=== PATIENT | female | born 1930 | race Caucasian/White ===

== ENCOUNTER 2017-06-03 09:02 | Inpatient (IN) | payer MEDICARE ==
[~2017-06-03] VITALS: Ht 157.5 cm; Wt 57.2 kg
[~2017-06-03 09:02] MED LIST: AMLO-104 PO; AMLO2.5T74 PO; ASPI-1471 PO; BIOT800T4 PO; CALC-941 PO; CALC1TAB32 PO; CHOL100059 PO; CLON-327 PO; CLON1 PO; DOC100 PO; FURO-45 PO; HYDR-2966 PO; HYDR25SU51 RC; IBUP-1687 PO; LIDO10VI16 IART; LISI-362 PO; LISI20TA29 PO; LISI5TAB25 PO; LOR5/325 PO; METO25TA23 PO; METO25TA91 PO; METO50TA19 PO; MIRT7.5T2 PO; MULT-27 PO; ONDA-2 PO; OXYC1TAB54 PO; OXYGENHOME INH; PER PO; POLY17PO25 PO; PRED-1 PO; RANI-318 PO; SERT25TA90 PO; SPIR25TA78 PO; SULF-198 PO; TRI40I IART; VITA-200 PO
--- NOTE | 2017-06-03 09:04 | ER Report ---
History and Physical Time Seen By MD: 09:04 HPI/ROS CHIEF COMPLAINT: Facial droop, weakness, possible stroke HISTORY OF PRESENT ILLNESS: Patient is an 86-year-old female who presents to the emergency department with complaint of possible stroke symptoms. Patient states that she's been feeling dizzy noted bilateral lower extremity weakness she also reports a new right-sided facial droop that began yesterday, Monday, June 02. Patient has no prior history of stroke. Brief bedside exam reveals a right-sided facial droop that is moderate. She has no pronator drift. No apparent dysarthria and is able to lift both legs off of the exam chair. We will obtain an Accu-Chek at this time send the patient for stat CT of the head. More detailed history to follow when returning from CAT scan. Patient is an 86- year-old female who presents to the emergency department with greater than 12 hours worth of right-sided facial droop, balance disturbance and bilateral lower extremely weakness. She is unsure of the exact set of the onset but states that this all occurred beginning yesterday. became concerned this morning when the patient had some difficulty finding words and some slurred speech which is what prompted the visit to the emergency department. Blood sugar on arrival was 109 mg/dL. Patient denies any chest pain or shortness of breath she denies any abdominal pain she denies nausea vomiting or diarrhea. REVIEW OF SYSTEMS: Constitutional: No fever, no chills. Eyes: No discharge. ENT: No sore throat. Right-sided facial droop Cardiovascular: No chest pain, no palpitations. Respiratory: No cough, no shortness of breath. Gastrointestinal: No abdominal pain, no vomiting. Genitourinary: No hematuria. Musculoskeletal: Bilateral lower extremity weakness Skin: No rashes. Neurological: No headache. Allergies: Coded Allergies: Penicillins (Verified Allergy, Unknown, UNKNOWN, 06/03/17) Home Meds Active Scripts Ranitidine Hcl (RANITIDINE HCL) 150 Mg Tablet, 150 MG PO QHS for 90 Days, #90 TAB 3 Refills Prov:DELANEY BLAKELY MD 04/20/17 Furosemide (FUROSEMIDE) 20 Mg Tablet, 1 TAB PO QAM for 90 Days, #90 TAB 0 Refills Prov:DELANEY BLAKELY MD 04/20/17 Prednisone 10 Mg Tab (PREDNISONE 10 MG TAB) 10 Mg Tablet, 1 TAB PO QDAY for 90 Days, #90 TAB 1 Refill take 1.5 tablets for three days and then take one tablet every morning Prov:DELANEY BLAKELY MD 04/07/17 Lisinopril (LISINOPRIL) 10 Mg Tablet, 10 MG PO DAILY, #180 TAB 3 Refills Prov:DELANEY BLAKELY MD 04/07/17 Reported Medications Carboxymethylcellulose Sodium (RETAINE CMC) 1 Each Droperette, 1 EACH OP 06/03/17 Aspirin (ASPIR 81) 81 Mg Tablet.dr, 81 MG PO QDAY, TAB 04/07/17 Oxygen (OXYGEN) Inha, 2 L INH HS, L 04/07/17 Polyethylene Glycol 3350 (MIRALAX) 17 Gm Powd.pack, 17 GM PO PRN, PKT 04/07/17 Calcium Carb & Cit/Vitamin D3 (CALCIUM + D3 ER TABLET) Unknown Strength Tablet.er, TAB PO DAILY 400mg/500IU 04/07/17 Vitamin E Acetate (VITAMIN E) 400 Unit Capsule, 1 CAP PO DAILY, CAPSULE 04/07/17 Past Medical/Surgical History Past medical history for hypertension hypercholesterolemia Hx Smoking: No Smoking Status: Former Smoker Exposure to Second Hand Smoke?: No Hx Substance Use Disorder: No Hx Alcohol Use: No Constitutional Vital Sign - Last 24 Hours 06/03/17 06/03/17 06/03/17 06/03/17 09:02 09:15 09:17 09:20 Temp 98.7 Pulse ??? 73 75 Resp 17 14 B/P (MAP) 193/92 (125) 193/92 Pulse Ox 91 91 O2 Delivery Room Air 06/03/17 06/03/17 06/03/17 06/03/17 09:30 09:32 09:47 10:00 Pulse 74 ??? B/P (MAP) 168/89 (115) O2 Flow Rate 2.0 06/03/17 06/03/17 06/03/17 06/03/17 10:00 10:02 10:15 10:17 Pulse 74 78 Resp 22 B/P (MAP) 169/95 (119) 159/87 (111) Pulse Ox 96 06/03/17 06/03/17 06/03/17 06/03/17 10:30 10:32 10:37 10:45 Pulse 74 ??? Resp 16 B/P (MAP) 156/91 (112) 164/89 (114) Pulse Ox 95 06/03/17 06/03/17 06/03/17 06/03/17 10:52 11:00 11:07 11:15 Pulse 74 76 Resp 17 17 B/P (MAP) 161/91 (114) 173/93 (119) Pulse Ox 96 95 06/03/17 06/03/17 06/03/17 06/03/17 11:22 11:30 12:15 12:22 Pulse 78 75 Resp 17 25 B/P (MAP) 166/89 (114) 160/90 (113) Pulse Ox 95 93 06/03/17 06/03/17 06/03/17 06/03/17 12:38 12:38 12:40 12:40 Pulse 79 73 Resp 14 Pulse Ox 97 99 O2 Delivery Nasal Cannula Nasal Cannula O2 Flow Rate 2.0 2.0 Physical Exam General/Constitutional: Patient is awake, alert, nontoxic and in no acute respiratory distress. Head: Normocephalic and atraumatic. Eyes: Conjunctival clear, Pupils are equal and reactive to light. Extraocular muscles are intact and symmetrical. Sclera are clear and anicteric. Ears:External canals are clear. Tympanic membranes are clear with normal landmarks and light reflex. Nares: No rhinorrhea or bleeding. Turbinates are pink and moist. Oropharyngeal: Mucous membranes are moist. There is no pharyngeal erythema or exudate. There are no palatal petechiae. Uvula is midline and symmetrical. Neck: Supple, no adenopathy. Cardiovascular: Heart is regular rate and rhythm without audible murmurs, rubs or gallops. Pulmonary: Lungs are clear to auscultation bilaterally. There are no wheezes, rales, or rhonchi. Chest rise is symmetrical Abdomen: Soft, nontender, no guarding or peritoneal signs. Extremities: No gross deformities, No peripheral cyanosis. Able to move all 4 extremities. Neuro: Alert and oriented X3, Cranial nerves 2 thru 12 are intact and symmetrical. Patient has normal gait. Skin: No rashes, skin is warm dry and well perfused. Medical Decision Making Data Points Result Diagram: 06/03/17 0918 06/03/17 0918 Laboratory Hematology Test 06/03/17 09:18 Red Blood Count 4.70 M/uL (4.17-5.56) Mean Corpuscular Volume 86.2 fL (80.0-96.0) Mean Corpuscular Hemoglobin 29.2 pg (26.0-33.0) Mean Corpuscular Hemoglobin Concent 33.9 g/dL (32.0-36.0) Red Cell Distribution Width 14.9 % (11.5-14.5) Mean Platelet Volume 7.9 fL (7.2-11.1) Neutrophils (%) (Auto) 76.1 % (39.4-72.5) Lymphocytes (%) (Auto) 12.7 % (17.6-49.6) Monocytes (%) (Auto) 8.4 % (4.1-12.4) Eosinophils (%) (Auto) 2.1 % (0.4-6.7) Basophils (%) (Auto) 0.7 % (0.3-1.4) Nucleated RBC Relative Count (auto) 0.0 /100WBC Neutrophils # (Auto) 12.1 K/uL (2.0-7.4) Lymphocytes # (Auto) 2.0 K/uL (1.3-3.6) Monocytes # (Auto) 1.3 K/uL (0.3-1.0) Eosinophils # (Auto) 0.3 K/uL (0.0-0.5) Basophils # (Auto) 0.1 K/uL (0.0-0.1) Nucleated RBC Absolute Count (auto) 0.00 K/uL Prothrombin Time 12.8 seconds (12.0-14.4) Prothromb Time International Ratio 0.97 Activated Partial Thromboplast Time 25 seconds (23-35) Sodium Level 137 mmol/L (137-145) Potassium Level 3.8 mmol/L (3.5-5.0) Chloride Level 99 mmol/L (98-107) Carbon Dioxide Level 28 mmol/L (22-31) Blood Urea Nitrogen 16 mg/dl (7-18) Creatinine 0.70 mg/dl (0.52-1.04) Glomerular Filtration Rate Calc > 60.0 Random Glucose 92 mg/dl (75-110) Calcium Level 9.8 mg/dl (8.4-10.2) Total Bilirubin 0.8 mg/dl (0.2-1.3) Aspartate Amino Transf (AST/SGOT) 53 U/L (0-35) Alanine Aminotransferase (ALT/SGPT) 34 U/L (0-56) Alkaline Phosphatase 70 U/L (0-126) Troponin I < 0.012 ng/ml Total Protein 7.8 gm/dl (6.3-8.2) Albumin 4.1 g/dl (3.5-5.0) Chemistry Test 06/03/17 09:18 White Blood Count 15.9 k/uL (4.5-11.0) Red Blood Count 4.70 M/uL (4.17-5.56) Hemoglobin 13.7 g/dL (12.0-16.0) Hematocrit 40.6 % (34.0-47.0) Mean Corpuscular Volume 86.2 fL (80.0-96.0) Mean Corpuscular Hemoglobin 29.2 pg (26.0-33.0) Mean Corpuscular Hemoglobin Concent 33.9 g/dL (32.0-36.0) Red Cell Distribution Width 14.9 % (11.5-14.5) Platelet Count 327 K/uL (150-450) Mean Platelet Volume 7.9 fL (7.2-11.1) Neutrophils (%) (Auto) 76.1 % (39.4-72.5) Lymphocytes (%) (Auto) 12.7 % (17.6-49.6) Monocytes (%) (Auto) 8.4 % (4.1-12.4) Eosinophils (%) (Auto) 2.1 % (0.4-6.7) Basophils (%) (Auto) 0.7 % (0.3-1.4) Nucleated RBC Relative Count (auto) 0.0 /100WBC Neutrophils # (Auto) 12.1 K/uL (2.0-7.4) Lymphocytes # (Auto) 2.0 K/uL (1.3-3.6) Monocytes # (Auto) 1.3 K/uL (0.3-1.0) Eosinophils # (Auto) 0.3 K/uL (0.0-0.5) Basophils # (Auto) 0.1 K/uL (0.0-0.1) Nucleated RBC Absolute Count (auto) 0.00 K/uL Prothrombin Time 12.8 seconds (12.0-14.4) Prothromb Time International Ratio 0.97 Activated Partial Thromboplast Time 25 seconds (23-35) Glomerular Filtration Rate Calc > 60.0 Calcium Level 9.8 mg/dl (8.4-10.2) Total Bilirubin 0.8 mg/dl (0.2-1.3) Aspartate Amino Transf (AST/SGOT) 53 U/L (0-35) Alanine Aminotransferase (ALT/SGPT) 34 U/L (0-56) Alkaline Phosphatase 70 U/L (0-126) Troponin I < 0.012 ng/ml Total Protein 7.8 gm/dl (6.3-8.2) Albumin 4.1 g/dl (3.5-5.0) Coagulation Test 06/03/17 09:18 Prothrombin Time 12.8 seconds Prothromb Time International Ratio 0.97 Activated Partial Thromboplast Time 25 seconds EKG/Imaging Imaging FACILITY: [facility] [place] PATIENT NAME: Sharon Shaver : 1930 MR: [id number] V: [id number] EXAM DATE: ORDERING PHYSICIAN: KELVIN LINK TECHNOLOGIST: Location: [facility] [place] Patient: Sharon Shaver : 1930 Visit/Account:[id number] Date of Sevice: 06/03/2017 CT Head without contrast Indication: Possible stroke. Comparison: A CT brain report dated 07/03/2015 is reviewed. Images currently unavailable on the PACS system. Technique: Axial CT images were obtained through the brain from the skull base to the vertex without administration of IV contrast. Reformatted coronal and sagittal images were also obtained. One of the following dose optimization techniques was utilized in the performance of this exam: Automated exposure control; adjustment of the mA and/ or kV according to the patient's size; or use of an iterative reconstruction technique. Specific details can be referenced in the facility's radiology CT exam operational policy. Findings: No evidence of mass, mass effect, or midline shift. No acute intracranial hemorrhage or acute territorial infarction. Extensive areas of low-attenuation seen within the periventricular white matter. This is symmetric from right to left and statistically is due to chronic small vessel ischemic changes. This was described on the prior exam. There is encephalomalacia from an old infarct involving the left basal ganglia. This was also previously described. Ventricles are normal and symmetric. The visualized paranasal sinuses and mastoid air cells are clear. IMPRESSION: 1. No acute intracranial abnormality. 2. Old left basal ganglia infarct. 3. Extensive periventricular white matter changes likely related to chronic small vessel ischemia. Report Dictated By: Andrew Simmons at 06/03/2017 10:11 AM Report E-Signed By: Andrew Simmons at 06/03/2017 10:19 AM WSN:[id number] FACILITY: [facility] [place] PATIENT NAME: Sharon Shaver : 1930 MR: [id number] V: [id number] EXAM DATE: [id number] ORDERING PHYSICIAN: KELVIN LINK TECHNOLOGIST: Location: [facility] [place] Patient: Sharon Shaver : 1930 Visit/Account:[id number] Date of Sevice: 06/03/2017 Exam type: CHEST SINGLE AP History: Stroke Comparison: None. Findings: Lungs are hyperinflated. There is no focal consolidation, pleural effusion or pneumothorax. Heart size is prominent. Pulmonary arteries are enlarged. The osseous structures are unremarkable. IMPRESSION: 1. No acute cardiopulmonary disease. 2. Pulmonary hyperinflation. 3. Cardiomegaly with enlarged pulmonary arteries Report Dictated By: Toni Brown MD at 06/03/2017 10:06 AM Report E-Signed By: Toni Brown MD at 06/03/2017 10:13 AM WSN:[id number] FACILITY: [facility] [place] PATIENT NAME: Sharon Shaver : 1930 MR: [id number] V: [id number] EXAM DATE: [id number] ORDERING PHYSICIAN: KELVIN LINK TECHNOLOGIST: Location: [facility] [place] Patient: Sharon Shaver : 1930 Visit/Account:[id number] Date of Sevice: 06/03/2017 Examination: MRI brain without contrast Comparison: CT head same day. History: Possible stroke. Procedure: Multiplanar noncontrast MRI of the brain with T1, T2, FLAIR, DWI/ADC , and T2* GRE sequences. FINDINGS: Brain volume: Mild global volume loss. Sagittal midline structures and craniocervical junction: Negative. Midline shift: None. Ventricles: Negative. Brain parenchyma: Diffusion weighted imaging: Along the posterior margin of the left basal ganglia lacunar infarct is an 11 mm focus of abnormal diffusion restriction with accompanying decreased signal on ADC. Gradient sequence: Negative. T2 and FLAIR images: Extensive regions of subcortical and deep white matter increased signal intensity is nonspecific but favored to be secondary to chronic microvascular ischemic disease. No region of acute parenchymal edema. Extra-axial spaces: Negative. Dural venous sinuses and major arterial flow voids: Negative. Calvarium: Negative. Mastoid air cells and paranasal sinuses: Negative. Surrounding soft tissues and orbits: Negative. IMPRESSION: Left basal ganglia 11 mm focus of acute ischemia. Results were discussed with AKIRA Pederson, at 06/03/2017 12:39 PM. Report Dictated By: Mp Bruno MD at 06/03/2017 12:30 PM Report E-Signed By: Mp Bruno MD at 06/03/2017 12:39 PM WSN:[id number] ED Course/Re-evaluation ED Course NIH Stroke Scale: 3 Level of consciousness: Alert -0 Answers both questions correctly-0 Performs both tasks correctly-0 Best Gaze: Normal-0 Visual: No visual loss-0 Facial Palsy: Partial paralysis-2 Motor Left Arm: No drift for 10 seconds-0 Motor Right Arm: No drift for 10 seconds-0 Motor Left Leg: No drift for 5 seconds-0 Motor Right Leg: No drift for 5 seconds-0 Limb Ataxia: Absent-0 Sensory: Normal, no sensory loss-0 Best Language: Normal, no aphasia-0 Dysarthria: Normal-1 Extinction and Inattention: No abnormality-0 06/03/2017 12:53:42 pm patient does have a new focal finding on a noncontrast MRI of the brain 11 mm area of stroke in the left basal ganglia area. The case was discussed with Dr. Silva neurology at [facility]. His recommendation was the patient would be stable for admission here he would recommend starting the patient on 81 mg aspirin daily and also 75 mg of Plavix daily the patient currently takes a statin but further recommends an echocardiogram and that the patient should be admitted to telemetry and have a carotid Doppler performed. This was explained to the patient who agreed to admission of this time I spoke with our hospitalist Dr. Tapia he has agreed to accept the patient at this time Re-evaluation 06/03/2017 9:10:58 am onset of symptoms is greater than 4.5 hours from presentation. For this reason patient is an absolute contraindication to thrombolytics at this time. Decision to Disposition Date: Jun 03, 2017 Decision to Disposition Time: 12:53 Depart Departure Latest Vital Signs Vital Signs Date Time Temp Pulse Resp B/P (MAP) Pulse Ox O2 Delivery O2 Flow Rate FiO2 06/03/17 12:40 99 Nasal Cannula 2.0 06/03/17 12:40 73 06/03/17 12:38 14 06/03/17 12:15 160/90 (113) 06/03/17 09:20 98.7 Impression: Primary Impression: CVA (cerebral vascular accident) Condition: Condition Unchanged Disposition: Admitted from ER (to Med surg tele; dr Tapia) Referrals: DELANEY BLAKELY MD (PCP) Problem Qualifiers Primary Impression: CVA (cerebral vascular accident) CVA mechanism: unspecified Qualified Codes: I63.9 - Cerebral infarction, unspecified KELVIN LINK MD Jun 03, 2017 09:04
[2017-06-03] MEDS ORDERED: CARB1DRO OP (09:26)
--- NOTE | 2017-06-03 09:54 | EKG ---
FACILITY: [facility] PATIENT NAME: KUN KEARNEY : [id number] MR: [id number] V: [id number] EXAM DATE: ORDERING PHYSICIAN: KELVIN LINK TECHNOLOGIST: Mike Dickerson Reason : Blood Pressure : / mmHG Vent. Rate : 074 BPM Atrial Rate : 074 BPM P-R Int : 146 ms QRS Dur : 084 ms QT Int : 374 ms P-R-T Axes : 062 -41 039 degrees QTc Int : 415 ms Normal sinus rhythm Left axis deviation No ST-T abnormalities When compared with ECG of 03-JUL-2015 03:16, QRS axis shifted left Nonspecific T wave abnormality, improved in Anterior leads QT has shortened Confirmed by LU KRISHNAMURTHY ([id number]) on 06/03/2017 10:25:27 AM Referred By: Confirmed By:LU KRISHNAMURTHY
[2017-06-03 10:03] LABS: PLATELET COUNT, AUTOMATED 327 K/uL (150-450)
[2017-06-03 10:08] LABS: INR 0.97
--- NOTE | 2017-06-03 10:17 | RADIOLOGY IMAGING REPORT ---
FACILITY: [facility] [place] PATIENT NAME: Sharon Shaver : 1930 MR: [id number] V: [id number] EXAM DATE: ORDERING PHYSICIAN: KELVIN LINK TECHNOLOGIST: Location: [facility] [place] Patient: Sharon Shaver : 1930 Visit/Account:[id number] Date of Sevice: 06/03/2017 Exam type: CHEST SINGLE AP History: Stroke Comparison: None. Findings: Lungs are hyperinflated. There is no focal consolidation, pleural effusion or pneumothorax. Heart size is prominent. Pulmonary arteries are enlarged. The osseous structures are unremarkable. IMPRESSION: 1. No acute cardiopulmonary disease. 2. Pulmonary hyperinflation. 3. Cardiomegaly with enlarged pulmonary arteries Report Dictated By: Toni Brown MD at 06/03/2017 10:06 AM Report E-Signed By: Toni Brown MD at 06/03/2017 10:13 AM WSN:[id number]
--- NOTE | 2017-06-03 10:22 | RADIOLOGY IMAGING REPORT ---
FACILITY: [facility] [place] PATIENT NAME: Sharon Shaver : 1930 MR: [id number] V: [id number] EXAM DATE: ORDERING PHYSICIAN: KELVIN LINK TECHNOLOGIST: Location: [facility] Patient: Sharon Shaver : 1930 Visit/Account:[id number] Date of Sevice: 06/03/2017 CT Head without contrast Indication: Possible stroke. Comparison: A CT brain report dated 07/03/2015 is reviewed. Images currently unavailable on the PACS system. Technique: Axial CT images were obtained through the brain from the skull base to the vertex without administration of IV contrast. Reformatted coronal and sagittal images were also obtained. One of the following dose optimization techniques was utilized in the performance of this exam: Autom ated exposure control; adjustment of the mA and/or kV according to the patient's size; or use of an i terative reconstruction technique. Specific details can be referenced in the facility's radiology C T exam operational policy. Findings: No evidence of mass, mass effect, or midline shift. No acute intracranial hemorrhage or acute territorial infarction. Extensive areas of low-attenuation seen within the periventricular white matter. This is symmetric fr om right to left and statistically is due to chronic small vessel ischemic changes. This was describe d on the prior exam. There is encephalomalacia from an old infarct involving the left basal ganglia. This was also previously described. Ventricles are normal and symmetric. The visualized paranasal sinuses and mastoid air cells are clear. IMPRESSION: 1. No acute intracranial abnormality. 2. Old left basal ganglia infarct. 3. Extensive periventricular white matter changes likely related to chronic small vessel ischemia. Report Dictated By: Andrew Simmons at 06/03/2017 10:11 AM Report E-Signed By: Andrew Simmons at 06/03/2017 10:19 AM WSN:[id number]
[2017-06-03] MEDS ORDERED: LORazepam 2 MG/ML VIAL IVP ONE (11:25)
[2017-06-03] MEDS ORDERED: ALBUTEROL 1.25 MG/3ML NEB NEB ONE (12:35)
--- NOTE | 2017-06-03 12:42 | RADIOLOGY IMAGING REPORT ---
FACILITY: [facility] PATIENT NAME: Sharon Shaver : 1930 MR: [id number] V: [id number] EXAM DATE: ORDERING PHYSICIAN: KELVIN LINK TECHNOLOGIST: Location: [facility] Patient: Sharon Shaver : 1930 Visit/Account:[id number] Date of Sevice: 06/03/2017 Examination: MRI brain without contrast Comparison: CT head same day. History: Possible stroke. Procedure: Multiplanar noncontrast MRI of the brain with T1, T2, FLAIR, DWI/ADC, and T2* GRE sequence s. FINDINGS: Brain volume: Mild global volume loss. Sagittal midline structures and craniocervical junction: Negative. Midline shift: None. Ventricles: Negative. Brain parenchyma: Diffusion weighted imaging: Along the posterior margin of the left basal ganglia lacunar infarct is an 11 mm focus of abnormal diffusion restriction with accompanying decreased signal on ADC. Gradient sequence: Negative. T2 and FLAIR images: Extensive regions of subcortical and deep white matter increased signal intens ity is nonspecific but favored to be secondary to chronic microvascular ischemic disease. No region o f acute parenchymal edema. Extra-axial spaces: Negative. Dural venous sinuses and major arterial flow voids: Negative. Calvarium: Negative. Mastoid air cells and paranasal sinuses: Negative. Surrounding soft tissues and orbits: Negative. IMPRESSION: Left basal ganglia 11 mm focus of acute ischemia. Results were discussed with AKIRA Pederson, at 06/03/2017 12:39 PM. Report Dictated By: Mp Bruno MD at 06/03/2017 12:30 PM Report E-Signed By: Mp Bruno MD at 06/03/2017 12:39 PM WSN:[id number]
[2017-06-03 14:05] VITALS: BP 140/80
[2017-06-03] MEDS: CLOPIDOGREL BISULFATE 75MG TAB PO SCH (15:26)
--- NOTE | 2017-06-03 15:47 | History & Physical ---
History of Present Illness History of Present Illness 86yo female with a h/o PMR, HTN, and possible previous CVA who came to the ER for difficulty speaking and facial droop. 4 days ago, the patient saw her PCP who increased the prednisone to 15mg a day for 3 days and then the patient was to resume 10mg a day for her PMR. Yesterday, morning the patient noted right hand weakness and some drooling on the right side of her mouth. This morning her noticed a right sided facial droop and he had difficulty understanding what she was saying. The patient has noticed some word finding problems. She reports tripping yesterday when her feet got caught in cords on the ground. She doesn't report any right LE weakness. She might have had a stroke a couple of years ago based on an MRI in June 2015. She takes a baby ASA daily. She stopped smoking about 25 years ago. History Problems: (1) Polymyalgia rheumatica Status: Acute (2) History of hyperthyroidism Status: Resolved (3) Benign essential hypertension Onset Date: 09/09/2014 Status: Chronic (4) History of bladder surgery Status: Resolved (5) Hx of hysterectomy Status: Resolved (6) Hx of cataract extraction Status: Resolved (7) History of hemorrhoidectomy Status: Resolved (8) Hx of basal cell carcinoma excision Status: Chronic (9) Anxiety Status: Chronic Other Past Medical Hx Lives with her . No alcohol use or tobacco use. Home Meds Active Scripts Ranitidine Hcl (RANITIDINE HCL) 150 Mg Tablet, 150 MG PO QHS for 90 Days, #90 TAB 3 Refills Prov:DELANEY BLAKELY MD 04/20/17 Furosemide (FUROSEMIDE) 20 Mg Tablet, 1 TAB PO QAM for 90 Days, #90 TAB 0 Refills Prov:DELANEY BLAKELY MD 04/20/17 Prednisone 10 Mg Tab (PREDNISONE 10 MG TAB) 10 Mg Tablet, 1 TAB PO QDAY for 90 Days, #90 TAB 1 Refill take 1.5 tablets for three days and then take one tablet every morning Prov:DELANEY BLAKELY MD 04/07/17 Lisinopril (LISINOPRIL) 10 Mg Tablet, 10 MG PO DAILY, #180 TAB 3 Refills Prov:DELANEY BLAKELY MD 04/07/17 Reported Medications Carboxymethylcellulose Sodium (RETAINE CMC) 1 Each Droperette, 1 EACH OP 06/03/17 Aspirin (ASPIR 81) 81 Mg Tablet.dr, 81 MG PO QDAY, TAB 04/07/17 Oxygen (OXYGEN) Inha, 2 L INH HS, L 04/07/17 Polyethylene Glycol 3350 (MIRALAX) 17 Gm Powd.pack, 17 GM PO PRN, PKT 04/07/17 Calcium Carb & Cit/Vitamin D3 (CALCIUM + D3 ER TABLET) Unknown Strength Tablet.er, TAB PO DAILY 400mg/500IU 04/07/17 Vitamin E Acetate (VITAMIN E) 400 Unit Capsule, 1 CAP PO DAILY, CAPSULE 04/07/17 Allergies: Coded Allergies: Penicillins (Verified Allergy, Unknown, UNKNOWN, 06/03/17) Patient History: Connective tissue disease FATHER, , Age:57 FH: CHF (congestive heart failure) MOTHER, , Age:70 No pertinent family history CHILD CHILD CHILD CHILD Hx Smoking: No Smoking Status: Former Smoker Exposure to Second Hand Smoke?: No Caffeine Intake: Coffee Caffeine/Cups Per Day: OCC Hx Alcohol Use: No Hx Substance Use Disorder: No Social Drug Use: Never Review of Systems All Systems Reviewed/Normal: Yes, Except as Noted Exam Vital Signs Vital Signs Date Time Temp Pulse Resp B/P (MAP) Pulse Ox O2 Delivery O2 Flow Rate FiO2 06/03/17 14:05 98.0 72 24 140/80 (100) 96 Nasal Cannula 2.0 General Appearance: Alert, Awake, No Acute Distress Neuro: Other (Obvious facial droop on the right that persists with attempted smile. No other focal CN deficits on exam. Equal laundry washer/elbow flexion and extension/dorsiflexion/plantar flexion. Decreased resistance on the right to downward pressure with hip flexion. Normal sensation to light touch in the extremities. Slower with alternating clap and heel to naranjo on the right vs left.) ENT: Moist Mucous Membranes Cardiovascular: Regular Rate and Rhythm Respiratory: Clear to Auscultation : No CVA Tenderness Extremities: No Edema Medical Decision Making Data Points Result Diagram: 06/03/1791706/03/17917 Item Value Date Time Neutrophils (%) (Auto) 76.1 % H 06/03/17 0918 White Blood Count 15.9 k/uL H 06/03/1718 Erythrocyte Sedimentation Rate 51 mm/HOUR H 04/07/17 1000 Erythrocyte Sedimentation Rate 22 mm/HOUR 05/01/17 1638 Hemoglobin 13.7 g/dL 06/03/17917 Hematocrit 40.6 % 06/03/17917 Prothromb Time International Ratio 0.97 06/03/17917 Troponin I < 0.012 ng/ml 06/03/17917 Total Bilirubin 0.8 mg/dl 06/03/17917 Aspartate Amino Transf (AST/SGOT) 53 U/L H 06/03/17917 Alanine Aminotransferase (ALT/SGPT) 34 U/L 06/03/17917 Alkaline Phosphatase 70 U/L 06/03/17917 EKG / Imaging EKG Interpretation Vent. Rate : 074 BPM Atrial Rate : 074 BPM P-R Int : 146 ms QRS Dur : 084 ms QT Int : 374 ms P-R-T Axes : 062 -41 039 degrees QTc Int : 415 ms Normal sinus rhythm Left axis deviation No ST-T abnormalities When compared with ECG of 03-JUL-2015 03:16, QRS axis shifted left Nonspecific T wave abnormality, improved in Anterior leads QT has shortened Confirmed by LU KRISHNAMURTHY ([id number]) on 06/03/2017 10:25:27 AM Imaging Brain MRI - Brain volume: Mild global volume loss. Sagittal midline structures and craniocervical junction: Negative. Midline shift: None. Ventricles: Negative. Brain parenchyma: Diffusion weighted imaging: Along the posterior margin of the left basal ganglia lacunar infarct is an 11 mm focus of abnormal diffusion restriction with accompanying decreased signal on ADC. Gradient sequence: Negative. T2 and FLAIR images: Extensive regions of subcortical and deep white matter increased signal intensity is nonspecific but favored to be secondary to chronic microvascular ischemic disease. No region of acute parenchymal edema. Extra-axial spaces: Negative. Dural venous sinuses and major arterial flow voids: Negative. Calvarium: Negative. Mastoid air cells and paranasal sinuses: Negative. Surrounding soft tissues and orbits: Negative. IMPRESSION: Left basal ganglia 11 mm focus of acute ischemia. CXR - 1. No acute cardiopulmonary disease. 2. Pulmonary hyperinflation. 3. Cardiomegaly with enlarged pulmonary arteries Head CT - 1. No acute intracranial abnormality. 2. Old left basal ganglia infarct. 3. Extensive periventricular white matter changes likely related to chronic small vessel ischemia. Assessment and Plan Problems: (1) CVA (cerebral vascular accident) Status: Acute Assessment & Plan: She presented with about 24 hours of right UE weakness and an unknown duration of right facial droop and word finding problems. She has evidence of microvascular disease on brain imaging. She is already on ASA. The ER physician spoke with a Neurologist who recommended adding Plavix to the ASA and starting a statin. Will delay starting the statin until a CPK is back. Will ask OT/PT/ST to evaluate the patient. Will get a echo and carotid Dopplers. Will watch on telemetry. (2) Polymyalgia rheumatica Status: Acute Assessment & Plan: Diagnosed in March. Recently, increased from 10mg to 15mg for 3 days. Will continue at 10mg for now. ESR and CPK in the morning. She is not reporting any symptoms currently. (3) Benign essential hypertension Status: Chronic Assessment & Plan: Chronically on Lisinopril and on a tapering dose of Furosemide. Will hold both and likely not restart the Furosemide, since it is planned to be stopped. Will follow BP closely. (4) History of hyperthyroidism Status: Resolved Assessment & Plan: She received radioactive iodine. Will check a TSH. (5) COPD (chronic obstructive pulmonary disease) Status: Chronic Assessment & Plan: On O2 chronically. Lungs clear. Not on any nebs. Copies to: DELANEY BLAKELY MD Venous Thromboembolism Antithrombotics Is Pt On Any Antithrombotics?: No Exam Sepsis Risk: No Definite Risk Problem Qualifiers (1) CVA (cerebral vascular accident): CVA mechanism: unspecified Qualified Codes: I63.9 - Cerebral infarction, unspecified LU KRISHNAMURTHY MD Jun 03, 2017 15:47
[2017-06-03 19:49] VITALS: BP 122/72
[2017-06-03] MEDS: ALBUTEROL 2.5 MG/3 ML NEB NEB PRN (20:05)
[2017-06-03] MEDS: ASPIRIN 81 MG CHEW PO SCH (20:50)
[2017-06-03] MEDS: RANITIDINE HCL 150 MG TAB PO SCH (20:50)
[2017-06-03 23:20] VITALS: BP 99/67
[2017-06-04 02:59] VITALS: BP 135/82
[2017-06-04 06:41] LABS: PLATELET COUNT, AUTOMATED 257 K/uL (150-450)
[2017-06-04 08:59] VITALS: BP 134/78
[2017-06-04] MEDS: POLYETHYLENE GLYCOL 17 GM PKT PO SCH (09:00)
[2017-06-04] MEDS: predniSONE 10 MG TAB PO SCH (09:17)
[2017-06-04] MEDS: ALBUTEROL 2.5 MG/3 ML NEB NEB PRN (10:13)
[2017-06-04 10:44] VITALS: Ht 157.5 cm; Wt 57.2 kg
[2017-06-04 11:29] VITALS: BP 131/78
--- NOTE | 2017-06-04 14:35 | Hospitalist Progress Note ---
Subjective Progress Notes Subjective The patient denies pain. She can not tell if her neurologic status has improved. Physical Exam Vital Signs Date Time Temp Pulse Resp B/P (MAP) Pulse Ox O2 Delivery O2 Flow Rate FiO2 06/04/17 12:36 91 Nasal Cannula 1.0 06/04/17 11:29 97.6 87 16 131/78 (95) Intake and Output 06/05/17 07:00 Intake Total 640 ml Balance 640 ml Intake Oral 640 ml # Voids 2 # Bowel Movements 1 General Appearance: Alert, Awake, No Acute Distress, Afebrile Neuro: Other (R facial droop. R hand piece presser same as left. R leg hip flexion only slightly decreased c/w L. Leg strength otherwise similar to L.) Cardiovascular: Regular Rate and Rhythm Respiratory: Clear to Auscultation GI: Soft and Non-Tender Extremities: Warm, Perfused, Other (No edema.) Integumentary: Skin Intact without Lesion / Mass Psych: Appropriate Mood & Affect Result Diagram: 06/04/1760606/04/17606 Assessment and Plan Problems: (1) CVA (cerebral vascular accident) Status: Acute Assessment & Plan: She presented with about 24 hours of right UE weakness and an unknown duration of right facial droop and word finding problems. She has evidence of microvascular disease on brain imaging. She is already on ASA. The ER physician spoke with a Neurologist who recommended adding Plavix to the ASA and starting a statin. CPK is normal (has PMR). Will start atorvastatin. Will ask OT/PT/ST to evaluate the patient. Echo and carotid Dopplers ordered but apparently there is no staff for these tests today. Will watch on telemetry. (2) Polymyalgia rheumatica Status: Acute Assessment & Plan: Diagnosed in March. Recently, increased from 10mg to 15mg for 3 days. Will continue at 10mg for now. ESR and CPK are WNL. She is not reporting any symptoms currently. (3) Benign essential hypertension Onset Date: 09/09/2014 Status: Chronic Assessment & Plan: Chronically on Lisinopril and on a tapering dose of Furosemide. Will hold both and likely not restart the Furosemide, since it is planned to be stopped. Will follow BP closely. (4) History of hyperthyroidism Status: Resolved Assessment & Plan: She received radioactive iodine. Will check a TSH. (5) COPD (chronic obstructive pulmonary disease) Status: Chronic Assessment & Plan: On O2 chronically. Lungs clear. Not on any nebs. Time Spent on Plan of Care: < 30 min Exam Sepsis Risk: No Definite Risk Problem Qualifiers (1) CVA (cerebral vascular accident): CVA mechanism: unspecified Qualified Codes: I63.9 - Cerebral infarction, unspecified LEANA CAPONE MD Jun 04, 2017 14:35
[2017-06-04] MEDS ORDERED: INFLUENZA VIRUS VAC 0.5 ML SYR IM ONLY ONE (15:05)
[2017-06-04 15:49] VITALS: BP 132/86
[2017-06-04] MEDS: CLOPIDOGREL BISULFATE 75MG TAB PO SCH (15:55)
--- NOTE | 2017-06-04 17:21 | RADIOLOGY IMAGING REPORT ---
FAC[facility]: [facility] PATIENT NAME: Sharon Shaver : 1930 MR: [id number] V: [id number] EXAM DATE: ORDERING PHYSICIAN: LU KRISHNAMURTHY TECHNOLOGIST: Location: [facility] [place] Patient: Sharon Shaver : 1930 Visit/Account:[id number] Date of Sevice: 06/03/2017 Carotid ultrasound Indication: Stroke. Comparison:None available Findings: On the right : Peak systolic velocity of the right common carotid artery is 99 cm/s Peak systolic velocity of the right internal carotid artery is 62 cm/s There is normal antegrade flow of the right vertebral artery. The right ICA/CCA ratio is 0.6 On the left: Peak systolic velocity of the left common carotid artery is 87 cm/s Peak systolic velocity of the left internal carotid artery is 67 cm/s There is normal antegrade flow of the left vertebral artery. The left ICA/CCA ratio is 0.8 Mild calcified plaque identified within the carotid bulbs. Incidental note is made of a solid, isoechoic right thyroid nodule measuring up to 3.2 cm in diameter . IMPRESSION: 1. No hemodynamically significant stenosis of the bilateral common carotid arteries and bilateral int ernal carotid arteries as above. . Mild calcified plaque within the bilateral carotid bulbs without visualized stenosis. 3. Incidental note of a solid isoechoic nodule within the right thyroid lobe. This nodule meets [place] thyroid Association criteria for ultrasound-guided biopsy, if not previously imaged or previously biopsied. Carotid % stenosis: Velocity criteria are extrapolated from diameter data as defined by the Society o f Radiologists in Ultrasound Consensus Conference, Radiology 2003; 229; 340-346 Report Dictated By: Stanley Longoria MD at 06/04/2017 5:12 PM Report E-Signed By: Stanley Longoria MD at 06/04/2017 5:18 PM WSN:[id number]
[2017-06-04 19:27] VITALS: BP 157/93
[2017-06-04] MEDS: RANITIDINE HCL 150 MG TAB PO SCH (21:15)
[2017-06-04] MEDS: ASPIRIN 81 MG CHEW PO SCH (21:15)
[2017-06-04 23:17] VITALS: BP 149/82
[2017-06-05 02:53] VITALS: BP 154/83
[2017-06-05 06:07] LABS: PLATELET COUNT, AUTOMATED 250 K/uL (150-450)
[2017-06-05 07:47] VITALS: BP 162/80
[2017-06-05] MEDS: POLYETHYLENE GLYCOL 17 GM PKT PO SCH (09:00)
[2017-06-05] MEDS: predniSONE 10 MG TAB PO SCH (09:41)
--- NOTE | 2017-06-05 12:45 | Hospitalist Progress Note ---
Subjective Progress Notes Subjective This patient was admitted for an acute stroke. She had no acute events overnight. Patient Complains of: Cardiovascular: No: Chest Pain Respiratory: No: Shortness of Breath Physical Exam Vital Signs Date Time Temp Pulse Resp B/P (MAP) Pulse Ox O2 Delivery O2 Flow Rate FiO2 06/05/17 09:13 58 06/05/17 07:47 97.7 16 162/80 (107) 95 High-Flow Nasal Cannula 2.0 Intake and Output 06/06/17 07:00 Intake Total 240 ml Balance 240 ml Intake Oral 240 ml # Voids 1 Neuro: Other (Right sided facial droop.) Cardiovascular: Regular Rate and Rhythm Respiratory: Clear to Auscultation Extremities: No Edema Integumentary: No Cyanosis Result Diagram: 06/05/1752106/05/17521 Imaging Brain MRI reviewed. Carotid ultrasound reviewed. Assessment and Plan Problems: (1) CVA (cerebral vascular accident) Status: Acute Assessment & Plan: She presented with right upper extremity weakness, right facial droop, and word finding problems. A CT scan showed findings consistent with a left sided infarct and chronic micro ischemic changes. An MRI showed the left sided infarct to be acute. She was already on chronic treatment with aspirin. Plavix has been added based on neurology recommendations. A carotid ultrasound was negative for hemodynamically significant lesions. An echocardiogram and lipid panel are pending. (2) Thyroid nodule Assessment & Plan: This was noted on her carotid ultrasound. A thyroid biopsy was recommended. (3) Polymyalgia rheumatica Status: Acute Assessment & Plan: She was diagnosed with this in March 2017 and has been on prednisone for this. She has not required stress dosing. Her ESR is within normal limits. (4) Benign essential hypertension Onset Date: 09/09/2014 Status: Chronic Assessment & Plan: She had been on chronic treatment with lisinopril and Lasix. Both medications have been held in the setting of acute stroke. (5) COPD (chronic obstructive pulmonary disease) Status: Chronic Assessment & Plan: She is on chronic oxygen therapy. Exam Sepsis Risk: No Definite Risk Problem Qualifiers (1) CVA (cerebral vascular accident): CVA mechanism: unspecified Qualified Codes: I63.9 - Cerebral infarction, unspecified SANIYA EASTMAN DO Jun 05, 2017 12:45
[2017-06-05 13:54] VITALS: BP 110/78
[2017-06-05] MEDS: CLOPIDOGREL BISULFATE 75MG TAB PO SCH (15:43)
[2017-06-05 19:04] VITALS: BP 166/91
[2017-06-05] MEDS: RANITIDINE HCL 150 MG TAB PO SCH (20:09)
[2017-06-05] MEDS: ASPIRIN 81 MG CHEW PO SCH (20:10)
[2017-06-05 23:55] VITALS: BP 152/91
[2017-06-06 05:23] VITALS: BP 176/91
[2017-06-06 07:28] VITALS: BP 166/83
[2017-06-06] MEDS: POLYETHYLENE GLYCOL 17 GM PKT PO SCH (09:00)
[2017-06-06] MEDS: predniSONE 10 MG TAB PO SCH (09:19)
[2017-06-06] MEDS ORDERED: LISINOPRIL 5 MG TAB PO SCH (10:20)
[2017-06-06] MEDS ORDERED: CLOP75TA PO (11:58)
--- NOTE | 2017-06-06 12:06 | Hospitalist Depart ---
Discharge Summary Reason for Hosp/Final Diag: (1) CVA (cerebral vascular accident) Status: Acute Hospital Course & Plan: She presented with right upper extremity weakness, right facial droop, and word finding problems. A CT scan showed findings consistent with a left sided infarct and chronic micro ischemic changes. An MRI showed the left sided infarct to be acute. She was already on chronic treatment with aspirin. Plavix has been added based on neurology recommendations. A carotid ultrasound was negative for hemodynamically significant lesions. Echo showed an EF of 71% and no ASD or VSD. There was borderline . See below. Will defer to the patient's PCP about starting a statin because of the PMR. The patient has worked with OT/PT/ST and will continue work as an outpatient. Apparently, there were no changes in diet or recommendation for MBS by ST. She is safe to go home. (2) Thyroid nodule Status: Chronic Hospital Course & Plan: This was noted on her carotid ultrasound. A thyroid biopsy was recommended. Will defer to the patient's PCP about if and when that would be done. (3) Aortic stenosis Status: Chronic Hospital Course & Plan: See on the echo. It is borderline. She should have follow up with Cardiology or serial echo's. (4) Polymyalgia rheumatica Status: Chronic Hospital Course & Plan: She was diagnosed with this in March 2017 and has been on prednisone for this. She has not required stress dosing. Her ESR is within normal limits. (5) Benign essential hypertension Onset Date: 09/09/2014 Status: Chronic Hospital Course & Plan: She had been on chronic treatment with lisinopril and Lasix. Lasix was planned to be weaned off, so was not continued in the hospital and will not be continued as an outpatient. Lisinopril was held during the admission, but restarted today at half dose and then full dosing tomorrow. (6) COPD (chronic obstructive pulmonary disease) Status: Chronic Hospital Course & Plan: She is on chronic oxygen therapy. Departure Weight (Pounds): 126 Weight (Ounces): 2.0 Result Diagram: 06/05/1752106/05/17 05 Item Value Date Time White Blood Count 15.9 k/uL H 06/03/17 0918 White Blood Count 8.5 k/uL 06/04/17 0607 White Blood Count 8.1 k/uL 06/05/17 0522 Platelet Count 250 K/uL 06/05/17 0522 Platelet Count 257 K/uL 06/04/17 0607 Platelet Count 327 K/uL 06/03/17 0918 Neutrophils (%) (Auto) 76.1 % H 06/03/17 0918 Neutrophils (%) (Auto) 46.3 % 06/04/17 06 Neutrophils (%) (Auto) 48.8 % 06/05/17 05 Erythrocyte Sedimentation Rate 9 mm/HOUR 06/04/17 06 Prothromb Time International Ratio 0.97 06/03/17917 Activated Partial Thromboplast Time 25 seconds 06/03/17 09 Triglycerides Level 46 mg/dl 06/06/17 0526 Cholesterol Level 159 mg/dl 06/06/17 0526 LDL Cholesterol 98 mg/dl 06/06/17 0526 VLDL Cholesterol 9 mg/dl 06/06/17 0526 HDL Cholesterol 52 mg/dl 06/06/17 0526 Percent HDL Cholesterol 32.0 % 06/06/17 05 Cholesterol/HDL Ratio 3.1 06/06/17 05 Thyroid Stimulating Hormone (TSH) 1.78 uIU/ml 06/04/1707 Troponin I < 0.012 ng/ml 06/03/17917 Blood Urea Nitrogen 16 mg/dl 06/03/1718 Blood Urea Nitrogen 20 mg/dl H 06/04/17 0607 Blood Urea Nitrogen 18 mg/dl 06/05/17 0522 Creatinine 0.70 mg/dl 06/05/17 05 Creatinine 0.70 mg/dl 06/04/17 0607 Creatinine 0.70 mg/dl 06/03/1718 Total Bilirubin 0.8 mg/dl 06/03/17 0918 Aspartate Amino Transf (AST/SGOT) 53 U/L H 06/03/17 0918 Alanine Aminotransferase (ALT/SGPT) 34 U/L 06/03/17 0918 Alkaline Phosphatase 70 U/L 06/03/17 0918 Total Bilirubin 0.7 mg/dl 06/05/17 0522 Aspartate Amino Transf (AST/SGOT) 37 U/L H 06/05/17 0522 Alanine Aminotransferase (ALT/SGPT) 33 U/L 06/05/17 0522 Alkaline Phosphatase 53 U/L 06/05/17 0522 Imaging 06/05/17 Echo - Staff Climate Scientist pending. 06/03/16 Carotid Doppler - 1. No hemodynamically significant stenosis of the bilateral common carotid arteries and bilateral internal carotid arteries as above. . Mild calcified plaque within the bilateral carotid bulbs without visualized stenosis. 3. Incidental note of a solid isoechoic nodule within the right thyroid lobe. This nodule meets [place] thyroid Association criteria for ultrasound-guided biopsy, if not previously imaged or previously biopsied. Carotid % stenosis: Velocity criteria are extrapolated from diameter data as defined by the Society of Radiologists in Ultrasound Consensus Conference, Radiology 2003; 229; 340-346 06/03/16 Brain MRI - Left basal ganglia 11 mm focus of acute ischemia. 06/03/17 CXR - 1. No acute cardiopulmonary disease. 2. Pulmonary hyperinflation. 3. Cardiomegaly with enlarged pulmonary arteries 06/03/[address] - 1. No acute intracranial abnormality. 2. Old left basal ganglia infarct. 3. Extensive periventricular white matter changes likely related to chronic small vessel ischemia. EKG Vent. Rate : 074 BPM Atrial Rate : 074 BPM P-R Int : 146 ms QRS Dur : 084 ms QT Int : 374 ms P-R-T Axes : 062 -41 039 degrees QTc Int : 415 ms Normal sinus rhythm Left axis deviation No ST-T abnormalities When compared with ECG of 03-JUL-2015 03:16, QRS axis shifted left Nonspecific T wave abnormality, improved in Anterior leads QT has shortened Confirmed by LU KRISHNAMURTHY ([id number]) on 06/03/2017 10:25:27 AM Condition: Improved Discharge: Home, Home Health PT/OT Follow Up For: PT For Strengthening, PT Evaluation and Treat, ST Evaluation and Treat, OT Evaluation and Treat Home Health FLOOR MOLDER Follow Up For: ADL Assistance Discharge Instructions Home Meds Active Scripts Clopidogrel Bisulfate (CLOPIDOGREL) 75 Mg Tablet, 75 MG PO QDAY@1500, #30 Prov:LU KRISHNAMURTHY MD 06/06/17 Ranitidine Hcl (RANITIDINE HCL) 150 Mg Tablet, 150 MG PO QHS for 90 Days, #90 TAB 3 Refills Prov:DELANEY BLAKELY MD 04/20/17 Prednisone 10 Mg Tab (PREDNISONE 10 MG TAB) 10 Mg Tablet, 1 TAB PO QDAY for 90 Days, #90 TAB 1 Refill take 1.5 tablets for three days and then take one tablet every morning Prov:DELANEY BLAKELY MD 04/07/17 Lisinopril (LISINOPRIL) 10 Mg Tablet, 10 MG PO DAILY, #180 TAB 3 Refills Prov:DELANEY BLAKELY MD 04/07/17 Reported Medications Carboxymethylcellulose Sodium (RETAINE CMC) 1 Each Droperette, 1 EACH OP 06/03/17 Aspirin (ASPIR 81) 81 Mg Tablet.dr, 81 MG PO QDAY, TAB 04/07/17 Oxygen (OXYGEN) Inha, 2 L INH HS, L 04/07/17 Polyethylene Glycol 3350 (MIRALAX) 17 Gm Powd.pack, 17 GM PO PRN, PKT 04/07/17 Calcium Carb & Cit/Vitamin D3 (CALCIUM + D3 ER TABLET) Unknown Strength Tablet.er, TAB PO DAILY 400mg/500IU 04/07/17 Vitamin E Acetate (VITAMIN E) 400 Unit Capsule, 1 CAP PO DAILY, CAPSULE 04/07/17 Discontinued Scripts Furosemide (FUROSEMIDE) 20 Mg Tablet, 1 TAB PO QAM for 90 Days, #90 TAB 0 Refills Prov:DELANEY BLAKELY MD 04/20/17 Diet: Regular Activity: As Tolerated Special Instructions: Follow up with PCP in 1-2 weeks Go to the ER for worsening weakness or new weakness Copies to: DELANEY BLAKELY MD Venous Thromboembolism Antithrombotics Is Pt On Any Antithrombotics?: No [id number] Certification Face to Face Home Health Certification Institutional Provider conducted the [id number] encounter. Electronic Undersigning Physician Certifies Home Health. I certify that the patient has been under my care and that I had a [id number] encounter that meets the physician [id number] encounter requirements with this patient. This patient is home-bound due to safety issues and continues to require assistance with ADL's. I certify that based on my findings, that Nursing, Aides and the following Home Health services are medically necessary: Medical Necessity: Nursing, Rehab Date Face to Face Conducted: Jun 06, 2017 Problem Qualifiers (1) CVA (cerebral vascular accident): CVA mechanism: unspecified Qualified Codes: I63.9 - Cerebral infarction, unspecified LU KRISHNAMURTHY MD Jun 06, 2017 12:06
--- NOTE | 2017-06-06 12:20 | SPEECH INITIAL EVALUATION ---
SPEECH THERAPY sign painter helper: Felipa Carrizales MS, CCC-RESTAURANT AREA MANAGER Type of Assessment: Dysphagia Evaluation with Cognitive Evaluation Patient: Sharon Shaver Evaluation Date: 06-05-17 PREVIOUS LEVEL OF FUNCTION: Primary Medical Diagnosis: Lives at home with spouse. Indep with IADLs and communication PLOF: Independent. Lives with spouse. Pain Scale (0): denies CURRENT LEVEL OF FUNCTION: Requires min or mod assist with more complex ADLs mild/mod reduction in speech intelligibility and overall functional communication . LOC / Participation: alert , cooperative , aware of deficits Orientation: oriented to person, place, time, situation SPEECH Apraxia: Non-apraxic Dysarthric: flaccid dysarthria 2nd to R side facial/lingual deficits Overall intelligibility: moderate deficits. Approx 80% VOICE Vocal Deficits: No Changes to vocal quality: denies DYSPHAGIA Dysphagia Risk Evaluation Protocol DREP: Water Swallow Test: Pass, Puree Swallow Test: Pass, Solids Swallow Test: Fail . R-side buccal and lateral lingual stasis. Pt not successful at removing stasis with tongue only and uses fingers to remove food. Sensation of R and L side is WNL and pt is aware of any stasis decreasing risk of aspiration. BRITTANY NOMS Swallow Scale Score Based on DREP Results: Level 6: Swallowing is safe, and the individual eats and drinks independently. The individual usually self-cues when difficulty occurs. May need to avoid specific food items (e.g., popcorn and nuts), or require additional time (due to oral stage dysphagia). Sialorrhea: No Xerostomia: No Supplemental Oxygen Use: No Oxygen Saturation: Remains stable during liquid/food trials Oral Structure and Function: Dentition is adequate. No dentures. Pt has anterior spillage right side with liquids and some foods d/t lingual deficits. Lingual R side deviation. Right side weakness Pain with Swallow: Denies Oral Stage Oral Stage Dysphagia: Mild/moderate. Anterior spillage right side with liquids and some foods d/t lingual deficits. Pharyngeal Stage Pharyngeal Stage Dysphagia: No s/s of acute pharyngeal stage dysphagia including penetration/ aspiration with liquids or foods COGNITIVE /COMMUNICATION Leivasy Naming Test Short Form (BNT): Karl Cognitive Assessment (MoCA) Total Score (TS): 24/30 = mild cognitive impairment Areas of deficits: memory, naming, visuospatial Pt expected to require min assist for managing more complex IADS including medication management, peoplesoft financial developer ST ASSESSMENT SUMMARY DYSPHAGIA Mild/moderate oral stage deficits with anterior spillage right side with liquids and some foods d/t lingual deficits. No s/s of acute pharyngeal stage dysphagia including penetration/ aspiration with liquids or foods FUNCTIONAL COMMUNICATION: Limited functions communication: Motor speech errors 2nd to R-side oral weakness resulting in distortion of speech sounds decreasing functional communication. Cognition and language appear largely to be intact. RECOMMENDATIONS 1. Dysphagia Recommendations: Modified Barium Swallow. Continue with nectar thick liquids and regular food diet modification. Dysphagia goals to be determined following completion of MBS 2. Speech Therapy: The patient would benefit from home health ST with POC to be established by clinician Thank you for this referral. Felipa Carrizales M.S., [facility]-RESTAURANT AREA MANAGER Speech Therapist RAVINDRA
--- NOTE | 2017-06-06 17:15 | RADIOLOGY IMAGING REPORT ---
FACILITY: [facility] [place] PATIENT NAME: KUN KEARNEY : [id number] MR: [id number] V: [id number] EXAM DATE: [id number] ORDERING PHYSICIAN: SANIYA EASTMAN TECHNOLOGIST: Cat Hawley EXAMINATION:TWO-DIMENSIONAL ECHOCARDIOGRAPH REASON:CVA 2D Measurements (normal values in centimeters) LV endLV endRV endVent.LV PostAorticLeftPercent DiastolicSystolicDiastolicSeptumWallRootAtriumShortening (3.5-5.7)(0.9-2.6)(0.6-1.1)(0.6-1.1)(2.0-3.7)(1.9-4.0)(25-35%) [id number]% STROKE VOLUME: 56 mL. ESTIMATED EJECTION FRACTION:71% PARASTERNAL LONG AXIS: Overall left ventricular function does appear to be normal. No specific wall motion abnormalities were noted. Right ventricle appears to be mildly enlarged. The aortic valve was mildly sclerotic but does not appear to be stenotic. The patient appears to be in sinus rhythm. There is a mild amount of mitral insufficiency and some aortic insufficiency is present. PARASTERNAL SHORT AXIS: Overall left ventricular function again appears to be normal. Aortic valve is trileaflet in configuration and mildly sclerotic. Possibly borderline stenotic. There is some aortic insufficiency present. APICAL FOUR AND TWO CHAMBER: Again normal left ventricular function. Mild amount of tricuspid insufficiency is noted. Tricuspid regurgitation V-max is measured at 2.86 m/sec. Aortic valve area is measured at 1.5 cm2 with mean pressure gradient across the valve of 12 mmHg and a dimensionless index of 0.5. Mitral valve area was measured within normal range at 2.1 cm2. The left atrial and right atrial volumes are measured within normal range at 17 mL/m2 respectively. SUBCOSTAL VIEW: No pericardial effusion was noted. No atrial septal or ventricular septal defects were noted. Agitated saline bubble contrast study was done and no atrial septal or ventricular septal defects were appreciated. Doppler examination of the mitral valve in diastole does reveal the A wave greater than the E wave. The aortic insufficiency pressure halftime is 400 to 450 msec. IVC is normal in size. OVERALL IMPRESSION: 1. Normal left ventricular ejection fraction approximately 71%. No wall motion abnormalities are noted. 2. A grade 1/4 decrease in diastolic function. 3. Mild right ventricular enlargement with all the other chamber sizes being normal. 4. No atrial septal or ventricular septal defects were noted and an agitated saline bubble contrast study was done. 5. Trace amount of mitral insufficiency, a mild amount of tricuspid insufficiency with normal right ventricular systolic pressures at the upper range of normal at 36 mmHg. 6. Borderline aortic stenosis with a trileaflet aortic valve. The valve area was measured at 1.5 cm2 with mean pressure gradient across the valve of 12 mmHg and a dimensionless index of 0.5. There is a moderate amount of aortic insufficiency noted. 7. No thrombi were noted in any of the chambers but the left atrial appendage was not seen. Dictated by: Isaias Niño M.D. on 06/05/2017 at 18:35 Transcribed by: KARIE on 06/06/2017 at 11:47 Approved by: Isaias Niño M.D. on 06/06/2017 at 17:13 [facility]
== END 2017-06-06 13:45 | disposition home health service (06) | DRG 66 ==
LOC: ER 09:06 → MED 13:36
PROVIDERS: ADMIT Internal Medicine; ATTEND Internal Medicine
DX: I63.8 Other cerebral infarction (principal); I67.82 Cerebral ischemia; E04.1 Nontoxic single thyroid nodule; I35.0 Nonrheumatic aortic (valve) stenosis; M35.3 Polymyalgia rheumatica; I10 Essential (primary) hypertension; J44.9 Chronic obstructive pulmonary disease, unspecified; F41.9 Anxiety disorder, unspecified; K21.9 Gastro-esophageal reflux disease without esophagitis; R29.703 NIHSS score 3; Z79.82 Long term (current) use of aspirin; Z99.81 Dependence on supplemental oxygen; Z88.0 Allergy status to penicillin; Z87.891 Personal history of nicotine dependence; Z90.710 Acquired absence of both cervix and uterus
CPT/HCPCS: 36415; 36416; 70450; 70551; 71045; 82040; 82247; 82310; 82374; 82435; 82465; 82550; 82565; 82947; 82948; 83718; 84075; 84132; 84155; 84295; 84443; 84450; 84460; 84478; 84484; 84520; 85025; 85610; 85651; 85730; 93005; 93306; 93880; 94640; 96374; 97161; 97165; 99285; J2060; J7512; J7613

== ENCOUNTER 2017-08-13 18:20 | Emergency (ER) | payer MEDICARE ==
[2017-06-04 10:44] VITALS: Wt 56.7 kg
[~2017-08-13 18:20] MED LIST changes: +ASPI-757 PO; +CARB1DRO OP; +CLOP75TA PO
--- NOTE | 2017-08-13 18:33 | ER Report ---
History and Physical Time Seen By MD: 18:29 Hx. of Stated Complaint: PT REPORTS HIGH BP AT HOME, STATES SHE HAD A STROKE IN JUNE LAST TIME THIS HAPPENED HPI/ROS CHIEF COMPLAINT: dizziness and elevated blood pressure HISTORY OF PRESENT ILLNESS: This is an 86 year old female. She is having dizziness with increased blood pressure. The last time this happened she had a stroke. She has no new weakness, numbness, speech or swallow problems. She does have a mild headache. Has some vision problems which are unchanged and she is continuing with therapy for this. She had her Lisinopril increased to 10mg twice a day if she had elevated blood pressure and she has taken her 2nd dose of Lisinopril today. She is hard of hearing and needs hearing aides, but this is unchanged. She does get a little dizzy with sitting or standing. She has no chest pain. Had been on aspirin and plavix after her stroke, but had a rash with the plavix so it was stopped. She is not on a statin because of her polymyalgia rheumatica. REVIEW OF SYSTEMS: Constitutional: No fever or chills. Eyes: As above. ENT: No sore throat. No congestion. Cardiovascular: No palpitations. Respiratory: No cough. No shortness of breath. Gastrointestinal: No abdominal pain. No nausea or vomiting. Genitourinary: No dysuria. No frequency Musculoskeletal: No musculoskeletal pain. Skin: No rashes. Neurological: As above. Allergies: Coded Allergies: Penicillins (Verified Allergy, Unknown, UNKNOWN, 08/13/17) clopidogrel (Verified Allergy, Unknown, Rash, 08/13/17) Home Meds Active Scripts Amlodipine Besylate (AMLODIPINE BESYLATE) 5 Mg Tablet, 1 TAB PO QDAY, #7 TAB 0 Refills Prov:SOBEIDA MCCULLOUGH MD 08/13/17 Lisinopril (LISINOPRIL) 10 Mg Tablet, 1 TAB PO BID, #180 TAB 3 Refills Prov:SAMI LONG MD 08/09/17 Ranitidine Hcl (RANITIDINE HCL) 150 Mg Tablet, 150 MG PO QHS for 90 Days, #90 TAB 3 Refills Prov:DELANEY BLAKELY MD 06/16/17 Prednisone 10 Mg Tab (PREDNISONE 10 MG TAB) 10 Mg Tablet, 1 TAB PO QDAY for 90 Days, #90 TAB 3 Refills Prov:DELANEY BLAKELY MD 06/16/17 Reported Medications Aspirin (ASPIRIN) 325 Mg Tablet, 325 MG PO DAILY, TAB 06/23/17 Carboxymethylcellulose Sodium (RETAINE CMC) 1 Each Droperette, 1 EACH OP 06/03/17 Oxygen (OXYGEN) Inha, 2 L INH HS, L 04/07/17 Polyethylene Glycol 3350 (MIRALAX) 17 Gm Powd.pack, 17 GM PO PRN, PKT 04/07/17 Calcium Carb & Cit/Vitamin D3 (CALCIUM + D3 ER TABLET) Unknown Strength Tablet.er, TAB PO DAILY 400mg/500IU 04/07/17 Vitamin E Acetate (VITAMIN E) 400 Unit Capsule, 1 CAP PO DAILY, CAPSULE 04/07/17 Past Medical/Surgical History CVA, polymyalgia rheumatica, hypertension, previous smoker, anxiety. Hysterectomy, shoulder surgery, tonsillectomy, cataracts, basal cell carcinoma Reviewed Nurses Notes: Yes Hx Smoking: Yes Smoking Status: Former Smoker, Heavy Tobacco Smoker Exposure to Second Hand Smoke?: Yes Hx Substance Use Disorder: No Hx Alcohol Use: Yes Constitutional Vital Sign - Last 24 Hours 08/13/17 08/13/17 08/13/17 08/13/17 18:24 18:25 18:30 18:45 Temp 97.8 Pulse 90 84 81 Resp 16 13 23 B/P (MAP) 219/111 219/111 (147) 210/108 (142) Pulse Ox 92 90 95 O2 Delivery Room Air 08/13/17 08/13/17 08/13/17 08/13/17 18:50 18:55 19:00 19:05 Pulse 79 75 80 ??? Resp 20 18 19 B/P (MAP) 197/102 (133) 08/13/17 08/13/17 08/13/17 08/13/17 19:10 19:15 19:20 19:24 Pulse 73 78 81 Resp 17 17 B/P (MAP) 166/96 (119) Pulse Ox 89 91 89 08/13/17 08/13/17 08/13/17 08/13/17 19:25 19:30 19:35 19:45 Pulse 75 74 69 68 Resp 20 14 20 12 B/P (MAP) 164/88 (113) 164/94 (117) Pulse Ox 87 87 88 88 08/13/17 08/13/17 08/13/17 3/25/18 20:00 20:15 20:20 20:30 Pulse 68 ??? 71 Resp 18 17 B/P (MAP) 159/84 (109) ???/??? (1665) 176/92 (120) Pulse Ox 89 90 08/13/17 08/13/17 08/13/17 08/13/17 20:40 20:45 21:00 21:15 Pulse 66 66 64 Resp 13 18 13 B/P (MAP) 162/90 (114) 161/86 (111) Pulse Ox 89 88 91 08/13/17 08/13/17 08/13/17 08/13/17 21:20 21:30 21:40 22:06 Pulse 65 85 Resp 18 16 B/P (MAP) 165/86 (112) 171/90 (117) 185/89 (121) Pulse Ox 88 92 O2 Delivery Room Air Physical Exam General Appearance: The patient is alert. No acute distress. Eyes: Pupils are equal, round. Reactive to light. No pallor, injection or icterus. Extraocular movements are intact. ENT: Mucous membranes are moist. Normal oral mucosa. Posterior oropharynx is normal. Normal tympanic membranes and canals. Neck: Supple and non tender. Respiratory: Breathing easily and unlabored. Lungs are clear to auscultation. Cardiovascular: Regular rate and rhythm. No murmurs, gallops or rubs. Normal capillary refill. No edema. Gastrointestinal: Abdomen is soft and non tender. Nondistended. Normal active bowel sounds. Neurological: Alert and oriented x3. Cranial nerve exam with an eye exam as noted, midline tongue and symmetric palate elevation, no facial weakness of numbness. Normal strength and sensation in the extremities. Skin: Warm and dry. No rashes. Musculoskeletal: Extremities are nontender. Full range of motion. No tenderness in palpation of the cervical, thoracic and lumbar spine. DIFFERENTIAL DIAGNOSIS: After history and physical exam, differential diagnosis was considered for patient with dizziness, elevated hypertension, but no new focal neurologic changes. Medical Decision Making Data Points Result Diagram: 08/13/17181608/13/171816 Laboratory Hematology Test 08/13/17 18:17 08/13/17 19:03 Red Blood Count 5.05 M/uL (4.17-5.56) Mean Corpuscular Volume 89.4 fL (80.0-96.0) Mean Corpuscular Hemoglobin 29.9 pg (26.0-33.0) Mean Corpuscular Hemoglobin Concent 33.4 g/dL (32.0-36.0) Red Cell Distribution Width 13.9 % (11.5-14.5) Mean Platelet Volume 8.7 fL (7.2-11.1) Neutrophils (%) (Auto) 63.1 % (39.4-72.5) Lymphocytes (%) (Auto) 27.0 % (17.6-49.6) Monocytes (%) (Auto) 9.2 % (4.1-12.4) Eosinophils (%) (Auto) 0.4 % (0.4-6.7) Basophils (%) (Auto) 0.3 % (0.3-1.4) Nucleated RBC Relative Count (auto) 0.1 /100WBC Neutrophils # (Auto) 5.5 K/uL (2.0-7.4) Lymphocytes # (Auto) 2.3 K/uL (1.3-3.6) Monocytes # (Auto) 0.8 K/uL (0.3-1.0) Eosinophils # (Auto) 0.0 K/uL (0.0-0.5) Basophils # (Auto) 0.0 K/uL (0.0-0.1) Nucleated RBC Absolute Count (auto) 0.01 K/uL Sodium Level 140 mmol/L (137-145) Potassium Level 4.0 mmol/L (3.5-5.0) Chloride Level 100 mmol/L (98-107) Carbon Dioxide Level 27 mmol/L (22-31) Blood Urea Nitrogen 17 mg/dl (7-18) Creatinine 0.80 mg/dl (0.52-1.04) Glomerular Filtration Rate Calc > 60.0 Random Glucose 98 mg/dl (75-110) Calcium Level 10.2 mg/dl (8.4-10.2) Total Bilirubin 0.4 mg/dl (0.2-1.3) Aspartate Amino Transf (AST/SGOT) 51 U/L (0-35) Alanine Aminotransferase (ALT/SGPT) 31 U/L (0-56) Alkaline Phosphatase 82 U/L (0-126) Troponin I < 0.012 ng/ml Total Protein 7.9 gm/dl (6.3-8.2) Albumin 4.2 g/dl (3.5-5.0) Urine Color Straw Urine Clarity Clear Urine pH 7.0 pH (4.8-9.5) Urine Specific [place] 1.004 Urine Protein Negative mg/dL (NEGATIVE) Urine Glucose (UA) Negative mg/dL (NEGATIVE) Urine Ketones Negative mg/dL (NEGATIVE) Urine Blood Negative (NEGATIVE) Urine Nitrite Negative (NEGATIVE) Urine Bilirubin Negative (NEGATIVE) Urine Urobilinogen Negative mg/dL (0.2-1.9) Urine Leukocyte Esterase Small (NEGATIVE) Urine RBC <1 /HPF (0-2/HPF) Urine WBC 8 /HPF (0-5/HPF) Urine Squamous Epithelial Cells Few /LPF (</=FEW) Urine Transitional Epithelial Cells Few /LPF (NONE-FEW) Urine Bacteria Few /HPF (NONE-FEW) Urine Mucus None /HPF (NONE-FEW) Chemistry Test 08/13/17 18:17 08/13/17 19:03 White Blood Count 8.7 k/uL (4.5-11.0) Red Blood Count 5.05 M/uL (4.17-5.56) Hemoglobin 15.1 g/dL (12.0-16.0) Hematocrit 45.1 % (34.0-47.0) Mean Corpuscular Volume 89.4 fL (80.0-96.0) Mean Corpuscular Hemoglobin 29.9 pg (26.0-33.0) Mean Corpuscular Hemoglobin Concent 33.4 g/dL (32.0-36.0) Red Cell Distribution Width 13.9 % (11.5-14.5) Platelet Count 268 K/uL (150-450) Mean Platelet Volume 8.7 fL (7.2-11.1) Neutrophils (%) (Auto) 63.1 % (39.4-72.5) Lymphocytes (%) (Auto) 27.0 % (17.6-49.6) Monocytes (%) (Auto) 9.2 % (4.1-12.4) Eosinophils (%) (Auto) 0.4 % (0.4-6.7) Basophils (%) (Auto) 0.3 % (0.3-1.4) Nucleated RBC Relative Count (auto) 0.1 /100WBC Neutrophils # (Auto) 5.5 K/uL (2.0-7.4) Lymphocytes # (Auto) 2.3 K/uL (1.3-3.6) Monocytes # (Auto) 0.8 K/uL (0.3-1.0) Eosinophils # (Auto) 0.0 K/uL (0.0-0.5) Basophils # (Auto) 0.0 K/uL (0.0-0.1) Nucleated RBC Absolute Count (auto) 0.01 K/uL Glomerular Filtration Rate Calc > 60.0 Calcium Level 10.2 mg/dl (8.4-10.2) Total Bilirubin 0.4 mg/dl (0.2-1.3) Aspartate Amino Transf (AST/SGOT) 51 U/L (0-35) Alanine Aminotransferase (ALT/SGPT) 31 U/L (0-56) Alkaline Phosphatase 82 U/L (0-126) Troponin I < 0.012 ng/ml Total Protein 7.9 gm/dl (6.3-8.2) Albumin 4.2 g/dl (3.5-5.0) Urine Color Straw Urine Clarity Clear Urine pH 7.0 pH (4.8-9.5) Urine Specific [place] 1.004 Urine Protein Negative mg/dL (NEGATIVE) Urine Glucose (UA) Negative mg/dL (NEGATIVE) Urine Ketones Negative mg/dL (NEGATIVE) Urine Blood Negative (NEGATIVE) Urine Nitrite Negative (NEGATIVE) Urine Bilirubin Negative (NEGATIVE) Urine Urobilinogen Negative mg/dL (0.2-1.9) Urine Leukocyte Esterase Small (NEGATIVE) Urine RBC <1 /HPF (0-2/HPF) Urine WBC 8 /HPF (0-5/HPF) Urine Squamous Epithelial Cells Few /LPF (</=FEW) Urine Transitional Epithelial Cells Few /LPF (NONE-FEW) Urine Bacteria Few /HPF (NONE-FEW) Urine Mucus None /HPF (NONE-FEW) Urinalysis Test 08/13/17 19:03 Urine Color Straw Urine Clarity Clear Urine pH 7.0 pH (4.8-9.5) Urine Specific [place] 1.004 Urine Protein Negative mg/dL (NEGATIVE) Urine Glucose (UA) Negative mg/dL (NEGATIVE) Urine Ketones Negative mg/dL (NEGATIVE) Urine Blood Negative (NEGATIVE) Urine Nitrite Negative (NEGATIVE) Urine Bilirubin Negative (NEGATIVE) Urine Urobilinogen Negative mg/dL (0.2-1.9) Urine Leukocyte Esterase Small (NEGATIVE) Urine RBC <1 /HPF (0-2/HPF) Urine WBC 8 /HPF (0-5/HPF) Urine Squamous Epithelial Cells Few /LPF (</=FEW) Urine Transitional Epithelial Cells Few /LPF (NONE-FEW) Urine Bacteria Few /HPF (NONE-FEW) Urine Mucus None /HPF (NONE-FEW) EKG/Imaging EKG Interpretation 12 lead EKG: Rhythm: normal sinus rhythm, rate 78 [place]: Left axis deviation QRS: normal ST segments: normal Imaging Examination: CHEST SINGLE AP Comparison: 06/03/2017 History: Dizziness. Elevated blood pressure. Findings: Cardiac silhouette is prominent but unchanged. Mild chronic interstitial thickening. No new or enlarging consolidation, nodule, or acute peribronchial inflammation. No pneumothorax, edema, or effusion. Osseous structures are intact. IMPRESSION: Unchanged chest with no evidence of acute cardiopulmonary disease. Report Dictated By: Mp Bruno MD at 08/13/2017 8:28 PM EXAMINATION: CT HEAD WITHOUT CONTRAST COMPARISON: 06/03/2017. HISTORY: Dizziness. Elevated blood pressure. PROCEDURE: Noncontrast CT from the vertex through the skull base. One of the following dose optimization techniques was utilized in the performance of this exam: Automated exposure control; adjustment of the mA and/or kV according to the patient's size; or use of an iterative reconstruction technique. Specific details can be referenced in the facility's radiology CT exam operational policy. FINDINGS: Brain volume: Mild global volume loss. Hemorrhage/extra-axial fluid: None. Mass effect/midline shift/edema: None. Ischemia: Advanced chronic white matter change. Left periventricular white matter lacunar infarcts. No acute allan-white differentiation loss. Ventricles and basal cisterns: Within normal limits. Posterior fossa: Negative. Vessels: Negative. Calvarium, skull base, and scalp: Negative. Visualized sinuses and orbits: Within normal limits. IMPRESSION: 1. No intracranial hemorrhage or mass effect. 2. Advanced chronic white matter disease. No CT findings of acute ischemia. Report Dictated By: Mp Burno MD at 08/13/2017 8:29 PM ED Course/Re-evaluation Clinical Indication for ER IV: IV Access ED Course Improved blood pressure with 20mg of IV Labetalol. Labs and imaging unremarkable. Orthostatics as noted, without change. Reviewed all of the findings with the patient and her . She will start Amlodipine 5mg once a day in addition to her Lisinopril and follow-up with Dr. Blakely on Monday. Decision to Disposition Date: Aug 13, 2017 Decision to Disposition Time: 22:00 Depart Departure Latest Vital Signs Vital Signs Date Time Temp Pulse Resp B/P (MAP) Pulse Ox O2 Delivery O2 Flow Rate FiO2 08/13/17 22:06 85 16 185/89 (121) 92 Room Air 08/13/17 18:24 97.8 Impression: Primary Impression: Dizziness Additional Impression: Hypertensive urgency Condition: Improved Disposition: HOME OR SELF-CARE Referrals: DELANEY BLAKELY MD (PCP) New Scripts Amlodipine Besylate (AMLODIPINE BESYLATE) 5 Mg Tablet 1 TAB PO QDAY, #7 TAB 0 Refills Prov: SOBEIDA MCCULLOUGH MD 08/13/17 Patient Instructions: Hypertension (ED) Additional Instructions: No new neurologic changes were seen on your exam today. Labs and imaging (chest x-ray and CT scan of the brain) were normal tonight. Please follow-up with Dr. Blakely this week. Light to moderate activity until you see her. Start the blood pressure medicine Amlodipine 5mg once a day in the morning. Keep taking your Lisinopril 10mg twice a day. Problem Qualifiers SOBEIDA MCCULLOUGH MD Aug 13, 2017 18:33
[2017-08-13] MEDS ORDERED: LABETALOL HCL 20 MG/4 ML SYR IVP ONE (18:40)
[2017-08-13] MEDS ORDERED: LABETALOL HCL 100 MG/20ML VIAL IVP ONE (18:45)
--- NOTE | 2017-08-13 18:46 | EKG ---
FACILITY: [facility] - [place] PATIENT NAME: KUN KEARNEY : [id number] MR: [id number] V: [id number] EXAM DATE: ORDERING PHYSICIAN: SOBEIDA MCCULLOUGH TECHNOLOGIST: ANGELES Test Reason : DIZZY Blood Pressure : / mmHG Vent. Rate : 078 BPM Atrial Rate : 078 BPM P-R Int : 160 ms QRS Dur : 086 ms QT Int : 376 ms P-R-T Axes : 065 -44 047 degrees QTc Int : 428 ms Normal sinus rhythm Left axis deviation Abnormal ECG When compared with ECG of 03-JUN-2017 09:28, No significant change was found Confirmed by SHRAVAN CAPONE ([id number]) on 08/13/2017 6:47:44 PM Referred By: JAMEL Confirmed By:SHRAVAN CAPONE
[2017-08-13 18:50] LABS: PLATELET COUNT, AUTOMATED 268 K/uL (150-450)
--- NOTE | 2017-08-13 20:33 | RADIOLOGY IMAGING REPORT ---
FACILITY: [facility] PATIENT NAME: Sharon Shaver : 1930 MR: [id number] V: [id number] EXAM DATE: ORDERING PHYSICIAN: SOBEIDA MCCULLOUGH TECHNOLOGIST: Location: [facility] Patient: Sharon Shaver : 1930 Visit/Account:[id number] Date of Sevice: 08/13/2017 Examination: CHEST SINGLE AP Comparison: 06/03/2017 History: Dizziness. Elevated blood pressure. Findings: Cardiac silhouette is prominent but unchanged. Mild chronic interstitial thickening. No new or enlarging consolidation, nodule, or acute peribronchial inflammation. No pneumothorax, edema, or effusion. Osseous structures are intact. IMPRESSION: Unchanged chest with no evidence of acute cardiopulmonary disease. Report Dictated By: Mp Bruno MD at 08/13/2017 8:28 PM Report E-Signed By: Mp Bruno MD at 08/13/2017 8:29 PM WSN:[id number]
--- NOTE | 2017-08-13 20:38 | RADIOLOGY IMAGING REPORT ---
FACILITY: [facility] [place] PATIENT NAME: Sharon Shaver : 1930 MR: [id number] V: [id number] EXAM DATE: ORDERING PHYSICIAN: SOBEIDA MCCULLOUGH TECHNOLOGIST: Location: [facility] [place] Patient: Sharon Shaver : 1930 Visit/Account:[id number] Date of Sevice: 08/13/2017 EXAMINATION: CT HEAD WITHOUT CONTRAST COMPARISON: 06/03/2017. HISTORY: Dizziness. Elevated blood pressure. PROCEDURE: Noncontrast CT from the vertex through the skull base. One of the following dose optimizat ion techniques was utilized in the performance of this exam: Automated exposure control; adjustment o f the mA and/or kV according to the patient's size; or use of an iterative reconstruction technique. Specific details can be referenced in the facility's radiology CT exam operational policy. FINDINGS: Brain volume: Mild global volume loss. Hemorrhage/extra-axial fluid: None. Mass effect/midline shift/edema: None. Ischemia: Advanced chronic white matter change. Left periventricular white matter lacunar infarcts. N o acute allan-white differentiation loss. Ventricles and basal cisterns: Within normal limits. Posterior fossa: Negative. Vessels: Negative. Calvarium, skull base, and scalp: Negative. Visualized sinuses and orbits: Within normal limits. IMPRESSION: 1. No intracranial hemorrhage or mass effect. 2. Advanced chronic white matter disease. No CT findings of acute ischemia. Report Dictated By: Mp Bruno MD at 08/13/2017 8:29 PM Report E-Signed By: Mp Bruno MD at 08/13/2017 8:34 PM WSN:[id number]
[2017-08-13] MEDS ORDERED: AMLO-96 PO (22:03)
[2017-08-13] MEDS ORDERED: amLODIPine BESYL(*) 5 MG TAB PO ONE (22:05)
[2017-08-13 22:06] VITALS: BP 185/89
[2017-08-16] MEDS ORDERED: PRED-317 PO (08:51)
[2017-08-16] MEDS ORDERED: PRE1 PO (08:51)
[2017-08-16] MEDS ORDERED: AMLO-96 PO (08:57)
== END 2017-08-13 22:30 | disposition home or self-care (01) ==
LOC: ER 18:25
DX: I16.0 Hypertensive urgency (principal)
CPT/HCPCS: 70450; 71045; 81001; 84484; 85025; 93005; 96374; 99284; A9270; J3490; 82040; 82247; 82310; 82374; 82435; 82565; 82947; 84075; 84132; 84155; 84295; 84450; 84460; 84520

== ENCOUNTER → 2017-12-27 | Outpatient (CLI) | payer MEDICARE ==
[2017-06-04 10:44] VITALS: BMI 23.0
[~2017-12-27] MED LIST changes: +AMLO-96 PO; +DICL100G39 TOP; +HYDR12.561 PO; +PRE1 PO; +PRED-317 PO; +SPIR25TA80 PO
== END ==
LOC: LAB 14:34
PROVIDERS: ATTEND Family Medicine
DX: I10 Essential (primary) hypertension (principal)
CPT/HCPCS: 36415; 82310; 82374; 82435; 82565; 82947; 84132; 84295; 84520

== ENCOUNTER → 2018-02-08 | Outpatient (CLI) | payer MEDICARE ==
[2017-06-04 10:44] VITALS: BMI 23.0
[~2018-02-08] MED LIST changes: +AMLO-111 PO; -AMLO-96 PO; +AMLO2.5T76 PO
== END ==
LOC: LAB 08:31
PROVIDERS: ATTEND Family Medicine
DX: L65.9 Nonscarring hair loss, unspecified (principal); Z86.39 Personal history of other endocrine, nutritional and metabolic disease
CPT/HCPCS: 36415; 84443

== ENCOUNTER → 2018-02-26 | Outpatient (CLI) | payer MEDICARE ==
[2017-06-04 10:44] VITALS: BMI 23.0
[2018-02-26 14:00] LABS: PLATELET COUNT, AUTOMATED 279 K/uL (150-450)
== END ==
LOC: LAB 13:23
PROVIDERS: ATTEND Family Medicine
DX: R53.83 Other fatigue (principal); I10 Essential (primary) hypertension
CPT/HCPCS: 36415; 82040; 82247; 82310; 82374; 82435; 82565; 82947; 84075; 84132; 84155; 84295; 84450; 84460; 84520; 85025

== ENCOUNTER → 2018-03-21 | Outpatient (CLI) | payer MEDICARE ==
[2017-06-04 10:44] VITALS: BMI 23.0
[~2018-03-21] MED LIST changes: +LOSA25TA52 PO
== END ==
LOC: LAB 11:17
PROVIDERS: ATTEND Family Medicine
DX: I10 Essential (primary) hypertension (principal)
CPT/HCPCS: 36415; 82310; 82374; 82435; 82565; 82947; 84132; 84295; 84520

== ENCOUNTER 2018-06-20 11:15 | Outpatient (RCR) | payer MEDICARE ==
[2017-06-04 10:44] VITALS: BMI 23.0
--- NOTE | 2018-05-09 16:37 | PT INITIAL EVALUATION ---
MEDICAL DIAGNOSIS: R42 Dizziness,, R26.89 Imbalance s/p stroke TREATMENT DIAGNOSIS: Same, altered gait and balance DATE OF ONSET: 06/03/17 SUBJECTIVE: Sharon Shaver (Sue) presents to PT for imbalance, falls, dizziness since her L basal ganglia 11 mm lacunar infarct 06/03/17. She was discharged from home health awhile ago and finds she still has imbalance, difficulty descending stair, dizziness and imbalance with low light ambulation. She also has word finding difficulty and R hand fine motor difficulty. She fell one month ago due to tripping in the dark and relates she's falling every month or so. relates she's lost weight as it's difficult to get the fork to her mouth. She's right-handed. REHAB PROBLEM LIST: Decreased Strength, Impaired Transfers, Decreased Balance and Mobility, Altered Gait PREVIOUS MEDICAL HISTORY: CVA, former smoker, hypertension hypercholesterolemia, R RCR, L shoulder arthroscopy, R elbow, pelvic fractures. OCCUPATION: Retired, lives with her in a single level home, attends library functions, shops, drives, does house work. OBJECTIVE: During the evaluation, Elzbieta had word finding difficulty, swaps words. Posture: Heels 8" apart, upright trunk, midline head and spine. Strength: R psoas, quad 4/5, hamstrings 3+/5, Tib. ant. and peroneals 4-/5, gastroc. 4/5. L LE 4+ to 5-/5. Special Tests: Vestibular ocular reflex, eye tracking and gaze stabilization WNL. Mobility: Sit/processes chemical design engineer one attempt, heels 8" apart, one attempt. Gait: Functional Gait Assessment , a 50% impairment. Elzbieta has little change of speed with fast/slow gait, altered step length with head motion, walking forward eyes closed, and walking backward eyes open. Elzbieta ambulates at normal pace with heel strike to toe off position on firm surface. She descends 6-8" steps with handrail with non-reciprocating gait. Balance: Baum Balance Assessment 43/56, a 23% impairment. Elzbieta has difficulty with tandem gait, can clear a 6" curb, not higher, functional reach 5". She has infrequent retro balance loss with immediate standing. Static stand on Airex with increased anterior balance disturbance, eyes closed, WNL eyes open. Elzbieta lacks hip strategy, stepping balance reactions. ASSESSMENT: Sharon Shaver (Sue) presents with altered dynamic balance, altered gait, R>L LE weakness creating fall risk. She's started on a HEP. Short Term Goals One month: Elzbieta demonstrates steady immediate standing balance with standing, Baum 46-47/56 to reduce fall risk. Two months: Elzbieta descends stairs with reciprocating gait, with or without handrails, demonstrates corrective balance reactions on firm and uneven surfaces. Patient's Goals Be more steady, don't fall. PLAN: Patient to be seen for Strengthening/condition, Stretching, Neuromuscular Re-ed, Gait Trg/Balance Trg, Home Exercise Program for 2x/Week for 2 Months Thank you for this referral. If you have any questions, comments, or concerns about this report or plan, please contact me at . MTDD
--- NOTE | 2018-05-21 11:33 | OT INITIAL EVALUATION ---
SUBJECTIVE: Patient is an 87 year old right hand dominate female referred to OP OT services for CVA that occurred in June of 2017. Patient reports that she has had OT services in the past for Home Health. She feels that she could use more therapy for her right hand for strength and coordination. Patient reports that she is able to do all of her ADLs and IADLs without assistance. She reports that she has a difficult time with writing, cutting, buttons, opening up containers and turning pages in a book. Previous Medical History: please refer to chart Occupation:N/A OBJECTIVE: ROM: AROM Right Left Shoulder Flexion WFL WFL Shoulder Extension WFL WFL Shoulder Abduction WFL WFL Elbow Flexion/Extension WFL WFL Wrist Flexion/Extension WFL WFL extra time needed for the patient to perform elbow and write flexion/extension Strength: MMT: Right Left Shoulder Flexion 4/5 5/5 Shoulder Extension 4/5 5/5 Shoulder Abduction 4/5 5/5 Elbow Flexion/Extension 4/5 5/5 Wrist Flexion/Extension 4/5 5/5 (5= normal, 4= good, 3= fair, 2= poor, 1= trace) Foreclosure Home Inspector Right = 24.7# (Age/gender normative= 42.6#) Left=23.7# (Age/gender normative= 37.6#) Lateral Pinch Right = 12.3# (Age/gender normative= 12.6#) Left= 11# (Age/gender normative= 11.4#) 3 Point Pinch Right = 8.5# (Age/gender normative= 12#) Left= 8.7# (Age/gender normative= 11.5#) Sensation: no reports of changes in sensation Vision: no reports of changes in vision-was doing vision therapy for dry eye and focusing. She states that she is done with this therapy as of last week Special Test: 9 Hole Peg Test (dexterity) Right= 32 seconds (Age/gender normative= 21.5 seconds) Left= 24 seconds (Age/gender normative= 24.6 seconds) ASSESSMENT Patient demonstrates with a decrease in statement services representative/pinch strength and coordination of the right hand. Patient does present with decreased coordination when completing fine motor activities with the right hand. Patient will benefit from OP OT services to help increase statement services representative and pinch strength and to improve fine motor coordination of the right hand when completing ADLs, Short Term Goals 1.Patient will increase statement services representative strength on the right hand by 3# in order to hold objects with the right hand. 2.Patient will increase three pint pinch by 2# on the right hand in order open up containers. 3.Patient will decrease time on the 9 Hole peg test on the right hand by 5 seconds in order to complete self cares in a timely manner. PLAN: Plan to see patient 2 times a week for 2-4 weeks to increase function of the right hand. Plan of care to include: ther ex, ther act, self cares, coordination activities. Thank you for this referral. If you have any questions, concerns, or comments about this report or plan, please contact me at [phone]. aMxine Emery MS, OTR/L Occupational Therapist RAVINDRA
--- NOTE | 2018-05-23 08:32 | SPEECH INITIAL EVALUATION ---
INITIAL SPEECH PATHOLOGY EVALUATION REPORT Patient Name: Chay Kearney Date of Evaluation: 05/21/18 Patient : [birth year] Physician: Vickie Kelley MD Clinician: Leia Lindsay M.S., [facility]-BUSINESS SERVICES CLERK Treatment Dx: mild expressive aphasia; mild cognitive impairment; mild oropharyngeal dysphagia BACKGROUND Ms. Sharon Shaver is an 87 year old female presenting to speech therapy following a lacunar infarct to the L basal ganglia approximately 1 year prior. She was evaluated by the speech therapy department while hospitalized on 06/03/17, and continued to receive services via home health. Elzbieta reports continued word finding deficits, short-term memory difficulties, and requiring extra time to participate in meals. Mild, right sided lingual and labial deficits persist with negative impact on oral phase of swallow. Speech impairments have largely resolved. Elzbieta resides with her spouse, manages her own medications, continues to drive, and shares homemaking responsibilities. Her spouse handles financial specialist tasks. COGNITIVE LINGUISTIC ASSESSMENT Assessment procedures included a patient interview, informal evaluation of expressive and receptive language, informal assessment of motor speech, completion of the [place] Naming Test (BNT), completion of the Rossiter Cognitive Assessment (MOCA). Brief evaluation tools were selected due to breadth of analysis requirements and associated time restraints, including a clinical swallow examination. Further therapeutic assessment will be completed during subsequent treatment encounters. During the patient interview, Elzbieta primarily reported concerns with short term memory and word finding. Pauses were intermittently noted in connected discourse as a result of word finding deficits. The [place] Cognitive Assessment (MoCA) Version 7.1 was administered with the following results: -MoCA Total Score (TS): 23/30 (WFL = 27/30) mild cognitive linguistic impairment. Results were largely consistent with scores obtained approximately 1 year prior while hospitalized for L basal ganglia lacunar infarct (24/). Difficulties were noted during tasks requiring short term memory. Mild errors were also noted during visuospatial, word finding, language fluency, and working memory, activities. Relative areas of strength were demonstrated during tasks requiring executive function, immediate recall, sustained attention, language repetition, orientation, and mental abstraction. The [place] Naming Test (BNT) was also administered to measure confrontational word retrieval skills. Elzbieta achieved a raw score of 54/60 = 90%. She struggled with latency of response (10 seconds or more) with only one of these items. Given additional time to respond, she was able to retrieve the correct response. Elzbieta also intermittently demonstrated independent use of circumlocution to compensate for word finding deficits. SPEECH Despite history of flaccid dysarthria with residual, subtle R sided facial droop, Elzbieta was 100% intelligible in conversation. Consonants and vowels were clearly pronounced. It appears that motor speech impairments have largely resolved, and Elzbieta reports frequent recitation of home exercise word lists provided by her home health speech therapists. Although Maged R sided facial weakness does not significantly impact her speech output, she reported and was observed to demonstrate sialorrhea. VOICE Within functional limits. DYSPHAGIA Elzbieta participated in a clinical swallowing assessment with PO trials of thin liquids via cup and straw, in addition to trials of regular solids. Oral mechanism examination was remarkable for subtle, R sided facial droop, decreased lingual speed, decreased lingual ROM to the L, and lingual weakness against resistance. Reduced labial seal also observed. Mild oral residue was noted in the R sulci following trials of regular solids. Maged sensation was intact with efforts to clear via lingual sweep and liquid wash. Restriction in lingual movement negatively impacted efficient use of lingual sweep. Anterior spillage was not observed; however, Elzbieta reports this frequently happens when consuming thin liquids via cup rim. She perceived relative ease when consuming liquids via straw, and was provided with extras to take home. All trials were consumed with no overt or subtle signs or symptoms of aspiration. Hyolaryngeal elevation and excursion appeared subjectively intact to palpation. Elzbieta was unable to consume consecutive cup sips, and exhibited a suspected delay in pharyngeal swallow onset. Discussed recommendation to complete a modified barium swallow study to objectively analyze pharyngeal phase of swallow, as Elzbieta also reports that she coughs on thin liquids approximately one time per day. She declined recommendation at this time, but was agreeable to monitoring symptoms of pharyngeal dysphagia and considering completion in the future. TEA: Level 5; mild dysphagia. May benefit from intermittent reminders for use of compensations. SUMMARY Ms. Elzbieta Shaver presents with mild cognitive linguistic impairments and mild oropharyngeal dysphagia. These deficits may reduce independence with completion of IADLs, complex communication, and participation in meals. The results of this evaluation demonstrate that functional cognitive-linguistic impairments are present, indicating skilled speech therapy services are medically necessary for this patient. Elzbieta reports that she would like to be able to speak plainer, she wants to be able to remember things, and she drool[s] a lot, which is embarrassing. PROGNOSIS: Very Good. Strong insight, good motivation, success with prior therapies. RECOMMENDATIONS 1. Speech therapy 2x/wk for 8 weeks to address above described deficits 2. Ongoing discussion re: completion of modified barium swallow study to support modification of treatment plan if pharyngeal deficits persist PLAN OF CARE Short Term Goals 1. Pt will participate in an oral exercise program to promote efficient consumption of a regular diet and thin liquids and to decrease frequency of sialorrhea with 100% accuracy, occ cues for appropriate technique. 2. Pt will perform short-term memory tasks using external and internal memory strategies to support recall of routine, daily activities (e.g., medications, appointments) with 90% accuracy and min assist. 3. Pt will complete complex expressive language activities (i.e., complex conversation, description of medical needs, communication of vocational activities) with occ cues for use of word-finding strategies and self-correction of expressive language errors. Long-Term Goals Increase independence with IADLs and functional communication for safe and successful return to home, community, and vocational activities. Safely consume a regular diet with independent use of compensatory swallow strategies. Thank you for this referral. Please call [phone] to contact the BUSINESS SERVICES CLERK Leia Lindsay M.S., [facility]-BUSINESS SERVICES CLERK Physician Signature Date . [*] SHANNOND
--- NOTE | 2018-06-06 14:56 | OT DISCHARGE SUMMARY ---
SUBJECTIVE: Patient is an 87 year old right hand dominate female referred to OP OT services for CVA that occurred in June of 2017. Patient reports that she has been completing her strengthening and coordination exercises at home. Patient states that she can feel an increase in strength of her right hand. Previous Medical History: please refer to chart Occupation:N/A OBJECTIVE: ROM: AROM Right Left Shoulder Flexion WFL WFL Shoulder Extension WFL WFL Shoulder Abduction WFL WFL Elbow Flexion/Extension WFL WFL Wrist Flexion/Extension WFL WFL extra time needed for the patient to perform elbow and write flexion/extension Strength: MMT: Right Left Shoulder Flexion 4/5 5/5 Shoulder Extension 4/5 5/5 Shoulder Abduction 4/5 5/5 Elbow Flexion/Extension 4/5 5/5 Wrist Flexion/Extension 4/5 5/5 (5= normal, 4= good, 3= fair, 2= poor, 1= trace) Social Sciences Lecturer Right = 24.7#, now 37.3# (Age/gender normative= 42.6#) Left=23.7# (Age/gender normative= 37.6#) Lateral Pinch Right = 12.3#, now 12.3# (Age/gender normative= 12.6#) Left= 11# (Age/gender normative= 11.4#) 3 Point Pinch Right = 8.5#, now 9# (Age/gender normative= 12#) Left= 8.7# (Age/gender normative= 11.5#) Sensation: no reports of changes in sensation Vision: no reports of changes in vision-was doing vision therapy for dry eye and focusing. She states that she is done with this therapy as of last week Special Test: 9 Hole Peg Test (dexterity) Right= 32 seconds, 33 seconds now (Age/gender normative= 21.5 seconds) Left= 24 seconds (Age/gender normative= 24.6 seconds) ASSESSMENT Patient increased her psychiatric rn strength but her pinch and 9 hole peg test stayed the same. Patient feels that she is able to maintain her home exercises on her own. OT services feels comfortable discharging this patient to do her exercises on her own. Patient demonstrated with no challenges in her fine motor coordination during her therapy sessions. OT encouraged patient to return back to OP OT services if she feels that she needs more rehab in the future. Short Term Goals 1.Patient will increase psychiatric rn strength on the right hand by 3# in order to hold objects with the right hand. MET 2.Patient will increase three pint pinch by 2# on the right hand in order open up containers. NOT MET 3.Patient will decrease time on the 9 Hole peg test on the right hand by 5 seconds in order to complete self cares in a timely manner. NOT MET PLAN: Plan to discharge patient from OT services at this time. Patient and OT feel comfortable with discharge at this time with patient to continue her exercises at home on her own. Thank you for this referral. If you have any questions, concerns, or comments about this report or plan, please contact me at [phone]. Maxine Emery MS, OTR/L Occupational Therapist RAVINDRA
--- NOTE | 2018-06-13 11:30 | SLP DISCHARGE NOTE ---
SPEECH PATHOLOGY DISCHARGE SUMMARY End of Care: 06/13/17 Clinician: Leia Lindsay M.S., [facility], [place] D[facility] Patient: Sharon Shaver : [birth year] Ms. Sharon Shaver has been attending ST [facility] 2x/wk since 05/21/18. Interventions have addressed oral weakness, short-term memory deficits, and word finding difficulties. Elzbieta regularly attends scheduled visits, and consistently completes oral exercise program and assigned cognitive linguistic tasks in home environment. She has demonstrated improved efficiency and oral containment with PO intake, independent execution of memory strategies in home environment, and ability to apply word finding strategies in conversation. The patient has been working on the following goals: 1. Pt will participate in an oral exercise program to promote efficient consumption of a regular diet and thin liquids with 100% accuracy, occ cues for appropriate technique. 06/13. Met. Pt exhibits ability to independently follow- through with home exercise program with improvements noted in efficiency and oral containment during PO intake. Pt also subjectively reporting reduction in sialorrhea. 2. Pt will perform short-term memory tasks using external and internal memory strategies to support recall of routine, daily activities (e.g., medications, appointments) with 90% accuracy and min assist. 06/13. Met. Pt independently performs short-term memory tasks with 90% accuracy, and has demonstrated strong prospective recall evidenced by consistent follow-through with [facility] requests. 3. Pt will complete complex expressive language activities (i.e., complex conversation, description of medical needs, communication of vocational activities) with occ cues for use of word-finding strategies and self-correction of expressive language errors. 06/13. Met. Pt utilizes word finding strategies during participation in complex expressive language activities with occ cues to repair communicative breakdowns. SUMMARY Ms. Shaver has demonstrated strong motivation to participate with improvements noted in labial and lingual strength, labial and lingual ROM, oral containment, swallow efficiency, use of short-term memory strategies, and use of word finding strategies in conversational discourse. Elzbieta is agreeable to continue completion of home exercise programs as instructed. All goals have been met. ST to discharge at this time. Thank you for referring this patient to [facility], Speech- Language Pathology. Please call [phone] to contact the [facility] D[facility] with questions or concerns. Respectfully, Leia Lindsay, M.S., CCC-[facility] DIVER Physician Signature Date [*] MTDD
--- NOTE | 2018-06-18 14:06 | PT PLAN OF CARE ---
Physician: Dr. Vickie Kelley Patient is being seen: 2x/week Therapist: Lacey Holley, PT Medical Diagnosis: R42 Dizziness,, R26.89 Imbalance s/p stroke Treatment Diagnosis: Same, altered gait and balance Date of Onset: 06/03/17 Date of Initial Evaluation: 05/09/18 Date patient was last seen: 06/18/18 Number of treatments: 10 Number of cancellations/No shows: 0 INTERVENTIONS: Strengthening/condition Stretching Neuromuscular Re-ed Gait Trg/Balance Trg Home Exercise Program GOALS: One month: Elzbieta demonstrates steady immediate standing balance with standing, Baum 46-47/56 to reduce fall risk. both met Two months: Elzbieta descends stairs with reciprocating gait, with or without handrails, demonstrates corrective balance reactions on firm and uneven surfaces. all progressing PATIENT'S GOAL: Be more steady, don't fall. progressing Patient Compliance: Excellent Prognosis: Excellent Reasons for continuing therapy: S: Elzbieta denies falls. She isn't using a reciprocating gait with stair descent yet. Posture: Heels 4" apart, upright trunk, midline head and spine. Gait/Balance: Elzbieta ambulates with feet passing each other, clearing the floor. She has mild weaving with gait with head turn. She still has trunk shimmy standing on Airex foam and doesn't demonstrate corrective balance reactions on uneven surfaces. Baum Balance Assessment 53/56, normal fall risk with community ambulation. Special Tests: Vestibular ocular reflex, eye tracking and gaze stabilization WNL. Mobility: Sit/principal technologist one attempt, heels 6" apart, one attempt. A/P: Sharon Shaver is improving balance, gait, still needs vestibular habituation and more balance for reciprocating stair gait. If you agree, we'll continue 2x/week another 3 weeks. Thank you. RAVINDRA
[~2018-06-20 11:15] MED LIST changes: -AMLO-111 PO; +AMLO-125 PO; -AMLO2.5T76 PO; +AMLO2.5T78 PO; -LOSA25TA52 PO; +LOSA25TA57 PO; +PRE5 PO
--- NOTE | 2018-06-25 11:02 | PT PLAN OF CARE ---
Physician: Dr. Vickie Kelley Patient is being seen: 2x/week Therapist: Lacey Holley, PT Medical Diagnosis: R42 Dizziness,, R26.89 Imbalance s/p stroke Treatment Diagnosis: Same, altered gait and balance Date of Onset: 06/03/17 Date of Initial Evaluation: 05/09/18 Date patient was last seen: 06/20/18 Number of treatments: 11 Number of cancellations/No shows: 0 INTERVENTIONS: Strengthening/condition Stretching Neuromuscular Re-ed Gait Trg/Balance Trg Home Exercise Program GOALS: One month: Elzbieta demonstrates steady immediate standing balance with standing, Baum 46-47/56 to reduce fall risk. both met Two months: Elzbieta descends stairs with reciprocating gait, with or without handrails, demonstrates corrective balance reactions on firm and uneven surfaces. all progressing PATIENT'S GOAL: Be more steady (progressing), don't fall (not met). Patient Compliance: Excellent Prognosis: Excellent Reasons for discontinuing therapy: S: Elzbieta Shaver feel at home when she twisted her legs getting up from the couch 06/23/18. She sustained an intertrochanteric fracture which was nailed 06/24/18. Her last POC was 06/18/18. A/P Fracture and surgery changes PT setting. I need to DC outpatient PT. When Elzbieta is ready for outpatient PT in the future, we would all be happy to help her in her R sided-weakness and hip fracture rehabilitation. Thank you. RAVINDRA
== END 2018-06-20 18:00 | disposition home or self-care (01) ==
LOC: PT 11:15
PROVIDERS: ATTEND Family Medicine
DX: R42 Dizziness and giddiness (principal); R26.89 Other abnormalities of gait and mobility
CPT/HCPCS: 92523; 97162; 97165; 97168

== ENCOUNTER 2018-06-23 19:34 | Inpatient (IN) | payer MEDICARE ==
[~2018-06-23] VITALS: Ht 162.6 cm; Wt 50.6 kg
[~2018-06-23 19:34] MED LIST changes: -ACET-1718 PO
[2018-06-23] MEDS ORDERED: fentaNYL CITR 100 MCG/2 ML AMP IVP ONE ×2 (20:05→21:15)
--- NOTE | 2018-06-23 20:09 | ER Report ---
History and Physical Time Seen By MD: 19:55 Hx. of Stated Complaint: PATIENT BROUGHT IN VIA EMS. REPORTS SHE FELL FROM STANDING AT HOME. COMPLAINS OF RIGHT HIP PAIN. DENIES HITTING HEAD. HPI/ROS CHIEF COMPLAINT: Right hip pain, fall HISTORY OF PRESENT ILLNESS: 87-year-old female was sitting on couch just prior to arrival when she stood up because she had lost her sewing needle, states her legs got twisted and she fell, landing on her right hip. Patient states she had a stroke a year ago and has continued mild right lower extremity weakness and struggles with this. Patient denies hitting her head, hands or other parts of her body. Patient states that she was unable to get herself up, her was there and helped her get into couch in sitting position. However, she had continued severe pain in the right hip without radiation and EMS was called. She was given 50 of fentanyl and route with some pain relief, complains of continued severe pain. Patient reports a possible prior pelvis fracture years ago, denies other fractures or joint replacements. Patient denies known osteoporosis though of note she is on 5 mg of prednisone daily for polymyalgia rheumatica. She is on aspirin 325 mg daily subsequent to her stroke, and uses 2 liters of oxygen nightly due to hypoxia of unknown cause. She denies history of tobacco use. REVIEW OF SYSTEMS: Constitutional: No fever, no chills. Eyes: no blurred vision ENT: no facial trauma Cardiovascular: No chest pain, no palpitations. Respiratory: No cough, no shortness of breath. Gastrointestinal: No abdominal pain, no vomiting. Genitourinary: no dysuria Musculoskeletal: No back pain. Hip pain as above Skin: No rashes. Neurological: No headache. Remainder of the 14 system rev: Yes Allergies: Coded Allergies: Penicillins (Verified Allergy, Unknown, UNKNOWN, 06/23/18) clopidogrel (Verified Allergy, Unknown, Rash, 06/23/18) Home Meds Active Scripts Prednisone 5 Mg Tab (PREDNISONE 5 MG TAB) 5 Mg Tablet, 1 TAB PO QDAY for 90 Days, #90 TAB Prov:DELANEY BLAKELY MD 06/12/18 Losartan Potassium (LOSARTAN POTASSIUM) 25 Mg Tablet, 1 TAB PO QDAY for 90 Days, #90 TAB 4 Refills Prov:DELANEY BLAKELY MD 04/26/18 Diclofenac Sodium 1% Gel (VOLTAREN 1% GEL) 100 Gm Gel..gram., 2 GM TOP QID PRN for pain for 30 Days, #1 TUBE apply to left shoulder Prov:DELANEY BLAKELY MD 02/26/18 Reported Medications Aspirin (ASPIRIN) 325 Mg Tablet, 1 TAB PO DAILY 06/23/17 Carboxymethylcellulose Sodium (RETAINE CMC) 1 Each Droperette, 1 EACH OP 06/03/17 Oxygen (OXYGEN) Inha, 2 L INH HS, L 04/07/17 Polyethylene Glycol 3350 (MIRALAX) 17 Gm Powd.pack, 17 GM PO PRN, PKT 04/07/17 Calcium Carb & Cit/Vitamin D3 (CALCIUM + D3 ER TABLET) Unknown Strength Tablet.er, 1 TAB PO DAILY 400mg/500IU 04/07/17 Vitamin E Acetate (VITAMIN E) 400 Unit Capsule, 1 CAP PO DAILY, CAPSULE 04/07/17 Reviewed Nurses Notes: Yes Old Medical Records Reviewed: Yes Hx Smoking: Yes Smoking Status: Former Smoker, Heavy Tobacco Smoker Exposure to Second Hand Smoke?: Yes Hx Substance Use Disorder: No Hx Alcohol Use: Yes Constitutional Vital Sign - Last 24 Hours 06/23/18 06/23/18 06/23/18 06/23/18 19:39 19:39 20:00 20:00 Temp 97.8 Pulse 58 Resp 18 B/P (MAP) 180/91 (120) 180/91 191/120 (143) Pulse Ox 94 O2 Delivery Nasal Cannula O2 Flow Rate 3.0 06/23/18 06/23/18 06/23/18 06/23/18 20:04 20:11 20:30 21:00 Pulse 60 B/P (MAP) 183/86 (118) 196/105 (135) 183/89 (120) Pulse Ox 97 06/23/18 06/23/18 06/23/18 21:05 21:30 22:00 Pulse ??? B/P (MAP) 179/88 (118) 182/90 (120) Physical Exam General Appearance: The patient is alert, has no immediate need for airway protection and no signs of toxicity. Eyes: Pupils equal and round no pallor or injection. ENT, Mouth: Mucous membranes are moist. Respiratory: There are no retractions, lungs are clear to auscultation. Cardiovascular: Regular rate and rhythm. no m/r/g Gastrointestinal: Abdomen is soft and non tender, no masses, bowel sounds n ormal. Neurological: alert oriented x 4 Skin: Warm and dry, no rashes. Musculoskeletal: Right hip tenderness, no clear step-off, active and passive range of motion limited to 10 due to pain. No shaft femur, distal femur, knee, tib-fib, ankle tenderness. Patient has hip pain when dorsiflexing and plantar flexing foot. Pulses 2+ right lower extremity distally [ ] DIFFERENTIAL DIAGNOSIS: After history and physical exam differential diagnosis was considered for hip fracture, hip dislocation, pelvic fracture, or other complication of fall. Medical Decision Making Data Points Result Diagram: 06/23/18192906/23/181929 Laboratory Hematology Test 06/23/18 19:30 06/23/18 20:16 Red Blood Count 4.68 M/uL (4.17-5.56) Mean Corpuscular Volume 91.8 fL (80.0-96.0) Mean Corpuscular Hemoglobin 30.3 pg (26.0-33.0) Mean Corpuscular Hemoglobin Concent 33.1 g/dL (32.0-36.0) Red Cell Distribution Width 13.9 % (11.5-14.5) Mean Platelet Volume 9.3 fL (7.2-11.1) Neutrophils (%) (Auto) 55.5 % (39.4-72.5) Lymphocytes (%) (Auto) 33.5 % (17.6-49.6) Monocytes (%) (Auto) 9.7 % (4.1-12.4) Eosinophils (%) (Auto) 0.8 % (0.4-6.7) Basophils (%) (Auto) 0.5 % (0.3-1.4) Nucleated RBC Relative Count (auto) 0.0 /100WBC Neutrophils # (Auto) 4.9 K/uL (2.0-7.4) Lymphocytes # (Auto) 2.9 K/uL (1.3-3.6) Monocytes # (Auto) 0.8 K/uL (0.3-1.0) Eosinophils # (Auto) 0.1 K/uL (0.0-0.5) Basophils # (Auto) 0.0 K/uL (0.0-0.1) Nucleated RBC Absolute Count (auto) 0.00 K/uL Sodium Level 138 mmol/L (137-145) Potassium Level 3.9 mmol/L (3.5-5.0) Chloride Level 105 mmol/L (98-107) Carbon Dioxide Level 29 mmol/L (22-31) Blood Urea Nitrogen 28 mg/dl (7-18) Creatinine 0.70 mg/dl (0.52-1.04) Glomerular Filtration Rate Calc > 60.0 Random Glucose 101 mg/dl (75-110) Calcium Level 9.7 mg/dl (8.4-10.2) Total Bilirubin 0.4 mg/dl (0.2-1.3) Aspartate Amino Transf (AST/SGOT) 44 U/L (0-35) Alanine Aminotransferase (ALT/SGPT) 24 U/L (0-56) Alkaline Phosphatase 82 U/L (0-126) Total Protein 7.8 g/dl (6.3-8.2) Albumin 4.3 g/dl (3.5-5.0) Prothrombin Time 13.4 seconds (12.0-14.4) Prothromb Time International Ratio 1.02 Activated Partial Thromboplast Time 25 seconds (23-35) Chemistry Test 06/23/18 19:30 06/23/18 20:16 White Blood Count 8.8 k/uL (4.5-11.0) Red Blood Count 4.68 M/uL (4.17-5.56) Hemoglobin 14.2 g/dL (12.0-16.0) Hematocrit 43.0 % (34.0-47.0) Mean Corpuscular Volume 91.8 fL (80.0-96.0) Mean Corpuscular Hemoglobin 30.3 pg (26.0-33.0) Mean Corpuscular Hemoglobin Concent 33.1 g/dL (32.0-36.0) Red Cell Distribution Width 13.9 % (11.5-14.5) Platelet Count 265 K/uL (150-450) Mean Platelet Volume 9.3 fL (7.2-11.1) Neutrophils (%) (Auto) 55.5 % (39.4-72.5) Lymphocytes (%) (Auto) 33.5 % (17.6-49.6) Monocytes (%) (Auto) 9.7 % (4.1-12.4) Eosinophils (%) (Auto) 0.8 % (0.4-6.7) Basophils (%) (Auto) 0.5 % (0.3-1.4) Nucleated RBC Relative Count (auto) 0.0 /100WBC Neutrophils # (Auto) 4.9 K/uL (2.0-7.4) Lymphocytes # (Auto) 2.9 K/uL (1.3-3.6) Monocytes # (Auto) 0.8 K/uL (0.3-1.0) Eosinophils # (Auto) 0.1 K/uL (0.0-0.5) Basophils # (Auto) 0.0 K/uL (0.0-0.1) Nucleated RBC Absolute Count (auto) 0.00 K/uL Glomerular Filtration Rate Calc > 60.0 Calcium Level 9.7 mg/dl (8.4-10.2) Total Bilirubin 0.4 mg/dl (0.2-1.3) Aspartate Amino Transf (AST/SGOT) 44 U/L (0-35) Alanine Aminotransferase (ALT/SGPT) 24 U/L (0-56) Alkaline Phosphatase 82 U/L (0-126) Total Protein 7.8 g/dl (6.3-8.2) Albumin 4.3 g/dl (3.5-5.0) Prothrombin Time 13.4 seconds (12.0-14.4) Prothromb Time International Ratio 1.02 Activated Partial Thromboplast Time 25 seconds (23-35) Coagulation Test 06/23/18 20:16 Prothrombin Time 13.4 seconds Prothromb Time International Ratio 1.02 Activated Partial Thromboplast Time 25 seconds EKG/Imaging EKG Interpretation 12 lead EKG: Rhythm: Sinus bradycardia [place]: left QRS: normal ST segments: normal Monitor Interpretation: Sinus Bradycardia ED Course/Re-evaluation ED Course Findings c/w intertrochanteric hip fracture; pt hd stable and pain controlled in ED. I consulted Dr. Londono who requests admission to hospitalist. Pt hd stable in ED. Decision to Disposition Date: Jun 23, 2018 Decision to Disposition Time: 21:52 Depart Departure Latest Vital Signs Vital Signs Date Time Temp Pulse Resp B/P (MAP) Pulse Ox O2 Delivery O2 Flow Rate FiO2 06/23/18 22:00 182/90 (120) 06/23/18 21:05 ??? 06/23/18 20:04 97 06/23/18 20:00 3.0 06/23/18 19:39 97.8 18 Nasal Cannula Impression: Primary Impression: Intertrochanteric fracture Condition: Condition Unchanged Disposition: Admitted from ER Referrals: DELANEY BLAKELY MD (PCP) Problem Qualifiers Primary Impression: Intertrochanteric fracture Encounter type: initial encounter Fracture type: closed Fracture alignment: displaced Laterality: right Qualified Codes: S72.141A - Displaced intertrochanteric fracture of right femur, initial encounter for closed fracture KELVIN TEE MD Jun 23, 2018 20:09
[2018-06-23 20:15] LABS: PLATELET COUNT, AUTOMATED 265 K/uL (150-450)
[2018-06-23 20:31] LABS: INR 1.02
--- NOTE | 2018-06-23 20:58 | EKG ---
FACILITY: [facility] PATIENT NAME: KUN KEARNEY : [id number] MR: [id number] V: [id number] EXAM DATE: ORDERING PHYSICIAN: KELVIN TEE TECHNOLOGIST: PUNEET Test Reason : PRE-OP Blood Pressure : / mmHG Vent. Rate : 056 BPM Atrial Rate : 056 BPM P-R Int : 158 ms QRS Dur : 084 ms QT Int : 442 ms P-R-T Axes : 060 -44 026 degrees QTc Int : 426 ms Sinus bradycardia Left axis deviation Possible left atrial enlargement Nonspecific T wave findings anteriorly Abnormal ECG No previous ECGs available Confirmed by SHRAVAN CAPONE ([id number]) on 06/23/2018 9:14:02 PM Referred By: RANDAL Confirmed By:SHRAVAN CAPONE
--- NOTE | 2018-06-23 21:28 | RADIOLOGY IMAGING REPORT ---
FACILITY: [facility] PATIENT NAME: Sharon Shaver : 1930 MR: [id number] V: [id number] EXAM DATE: ORDERING PHYSICIAN: KELVIN TEE TECHNOLOGIST: Location: [facility] Patient: Sharon Shaver : 1930 Visit/Account:[id number] Date of Sevice: 06/23/2018 EXAMINATION: HIP RIGHT HISTORY: fall, right hip tenderness COMPARISON: 05/20/2014 FINDINGS: AP view of the pelvis and crosstable lateral view of the right hip are obtained. Bones: Mildly displaced acute intertrochanteric fracture of the proximal right femur. The bones are osteopenic. Joint spaces: No dislocation. Disc degenerative changes in the visible lower lumbar spine. Hardware: Sutures in the lower abdominal wall along the midline. Soft tissues: Negative. IMPRESSION: Acute intertrochanteric fracture of the right femur. Report Dictated By: Magen Deleon MD at 06/23/2018 9:21 PM Report E-Signed By: Magen Deleon MD at 06/23/2018 9:24 PM WSN:[id number]
--- NOTE | 2018-06-23 21:47 | RADIOLOGY IMAGING REPORT ---
FACILITY: [facility] PATIENT NAME: Sharon Shaver : 1930 MR: [id number] V: [id number] EXAM DATE: ORDERING PHYSICIAN: KELVIN TEE TECHNOLOGIST: Location: [facility] [place] Patient: Sharon Shaver : 1930 Visit/Account:[id number] Date of Sevice: 06/23/2018 INDICATION: Trauma DATE: 06/23/2018 9:41 PM. TECHNIQUE: FEMUR RIGHT COMPARISON: None available FINDINGS: There is an intertrochanteric fracture of the right femur. A large lesser trochanteric fra gment is displaced. The distal femur is intact. IMPRESSION: Intertrochanteric fracture of the right femur. Report Dictated By: Shorty Cotton MD at 06/23/2018 9:41 PM Report E-Signed By: Shorty Cotton MD at 06/23/2018 9:42 PM WSN:[id number]
[2018-06-23] MEDS ORDERED: MORPHINE 4 MG/ML SDV IVP ONE (22:15)
[2018-06-23] MEDS ORDERED: NORMOSOL R SOLN(*) 1000 ML BAG 1,000 ML IV PRN (23:00)
[2018-06-23] MEDS ORDERED: FAMOTIDINE(*) 20MG/50ML PREMIX 50 ML IVPB ONE (23:00)
[2018-06-23 23:15] VITALS: BP 188/87
[2018-06-23] MEDS ORDERED: INFLUENZA VIRUS VAC 0.5ML SYR IM ONLY ONE (23:15)
[2018-06-23] MEDS ORDERED: PROMETHAZINE 25 MG/ML 1 ML AMP IVP PRN (23:15)
[2018-06-23] MEDS ORDERED: HYDROCORTISONE 100 MG/2 ML IVP ONE (23:15)
[2018-06-23] MEDS ORDERED: MORPHINE 1 MG/ML 30 ML PCA IV PRN (23:15)
--- NOTE | 2018-06-23 23:15 | RADIOLOGY IMAGING REPORT ---
[place] [facility] [place]IENT NAME: Sharon Shaver : 1930 MR: [id number] V: [id number] EXAM DATE: ORDERING PHYSICIAN: KELVIN TEE TECHNOLOGIST: [place] [facility] [place] [place] Shaver : 1930 Visit/Account:[id number] Date of Sevice: 06/23/2018 CHEST SINGLE AP Indication: Preop. Comparison: August 13, 2017. Findings: Heart size within normal limits. Mild calcification within the aortic knob. There is no focal infiltrate or lobar consolidation. Mild chronic interstitial opacities. Nonspeci fic linear striated opacity projecting over the right upper lung, possibly related to an overlapping structure. No pneumothorax or pleural effusion. IMPRESSION: 1. No acute cardiopulmonary process. 2. Chronic interstitial changes. 3. Nonspecific linear striated opacity projecting over the right upper lung, possibly related to an o verlapping structure. Report Dictated By: Stanley Longoria MD at 06/23/2018 11:06 PM Report E-Signed By: Stanley Longoria MD at 06/23/2018 11:07 PM WSN:[id number]
--- NOTE | 2018-06-23 23:30 | History & Physical ---
History of Present Illness Chief Complaint Fall History of Present Illness 87yo female with PMHx significant for CVA with residual mild right LE paresis, HTN. She reports getting up from the couch earlier this evening and "getting my legs crossed". She subsequently fell and had right hip pain. She denied any CP/SOB. She denied any palpitations/heart racing or skipping. She denied any new focal weakness. No LOC. She was transported via EMS to [facility] ER. She was found to have right hip fracture. Orthopedics is planning surgical correction tomorrow. She reports nausea/vomiting following anesthesia, but otherwise has tolerated fairly well in the past. She denies any history of bleeding problems, but has been on aspirin therapy following her CVA. She has no history of DVT/VTE. History Problems: (1) CVA (cerebral vascular accident) Status: Chronic (2) Polymyalgia rheumatica Status: Chronic Comment: Steroid dependent (3) Aortic stenosis Status: Chronic (4) Osteoporosis Onset Date: 01/28/2015 Status: Chronic (5) COPD (chronic obstructive pulmonary disease) Status: Chronic (6) Benign essential hypertension Onset Date: 09/09/2014 Status: Chronic Home Meds Active Scripts Prednisone 5 Mg Tab (PREDNISONE 5 MG TAB) 5 Mg Tablet, 1 TAB PO QDAY for 90 Days, #90 TAB Prov:DELANEY BLAKELY MD 06/12/18 Losartan Potassium (LOSARTAN POTASSIUM) 25 Mg Tablet, 1 TAB PO QDAY for 90 Days, #90 TAB 4 Refills Prov:DELANEY BLAKELY MD 04/26/18 Diclofenac Sodium 1% Gel (VOLTAREN 1% GEL) 100 Gm Gel..gram., 2 GM TOP QID PRN for pain for 30 Days, #1 TUBE apply to left shoulder Prov:DELANEY BLAKELY MD 02/26/18 Reported Medications Aspirin (ASPIRIN) 325 Mg Tablet, 1 TAB PO DAILY 06/23/17 Carboxymethylcellulose Sodium (RETAINE CMC) 1 Each Droperette, 1 EACH OP 06/03/17 Oxygen (OXYGEN) Inha, 2 L INH HS, L 04/07/17 Polyethylene Glycol 3350 (MIRALAX) 17 Gm Powd.pack, 17 GM PO PRN, PKT 04/07/17 Calcium Carb & Cit/Vitamin D3 (CALCIUM + D3 ER TABLET) Unknown Strength Tablet.er, 1 TAB PO DAILY 400mg/500IU 04/07/17 Vitamin E Acetate (VITAMIN E) 400 Unit Capsule, 1 CAP PO DAILY, CAPSULE 04/07/17 Allergies: Coded Allergies: Penicillins (Verified Allergy, Unknown, UNKNOWN, 06/23/18) clopidogrel (Verified Allergy, Unknown, Rash, 06/23/18) Patient History: Connective tissue disease FATHER, , Age:57 FH: CHF (congestive heart failure) MOTHER, , Age:70 No pertinent family history CHILD CHILD CHILD CHILD Hx Smoking: Yes Smoking Status: Former Smoker, Heavy Tobacco Smoker Exposure to Second Hand Smoke?: Yes Caffeine Intake: Coffee Caffeine/Cups Per Day: 1 cup decaf/day Hx Alcohol Use: Yes Hx Substance Use Disorder: No Social Drug Use: Never Review of Systems Constitutional: No Fever, No Chills Neurological: Dizziness; No Syncope Eyes: No Vision Change, No Loss of Vision ENT: Hearing Loss (chronic) Cardiovascular: No Chest Pain, No Palpitations Respiratory: No Shortness of Breath, No Cough Gastrointestinal: No Hematemesis, No Hematochezia, No Melena, No Abdominal Pain Genitourinary: No Dysuria, No Hematuria Musculoskeletal: Impaired Mobility Exam Vital Signs Vital Signs Date Time Temp Pulse Resp B/P (MAP) Pulse Ox O2 Delivery O2 Flow Rate FiO2 06/23/18 22:40 60 96 06/23/18 22:30 187/88 (121) 06/23/18 20:00 3.0 06/23/18 19:39 97.8 18 Nasal Cannula General Appearance: Alert, Awake Eyes: PERRLA ENT: Oropharynx Clear Cardiovascular: Regular Rate and Rhythm (with systolic murmur) Respiratory: Clear to Auscultation Chest: No Tenderness GI: Abd Soft and Non-Tender : No CVA Tenderness Extremities: Warm, Pulses (DP/PT normal), Perfused Psych: Alert & Oriented X3 Medical Decision Making Data Points Result Diagram: 06/23/18192906/23/181929 Item Value Date Time Urine Mucus None /HPF 06/23/182203 Urine Bacteria Negative /HPF 06/23/182203 Urine Squamous Epithelial Cells Few /LPF 06/23/182203 Urine WBC 1 /HPF 06/23/182203 Urine RBC 2 /HPF 06/23/182203 Urine Leukocyte Esterase Negative 06/23/182203 Urine Urobilinogen Negative mg/dL 06/23/182203 Urine Bilirubin Negative 06/23/182203 Urine Nitrite Negative 06/23/182203 Urine Blood Negative 06/23/182203 Urine Ketones Trace mg/dL 06/23/182203 Urine Glucose (UA) Negative mg/dL 06/23/182203 Urine Protein Negative mg/dL 06/23/182203 Urine Specific [place] 1.016 06/23/182203 Urine pH 6.0 pH 06/23/182203 Urine Clarity Clear 06/23/182203 Urine Color Yellow 06/23/182203 Activated Partial Thromboplast Time 25 seconds 06/23/182015 Prothromb Time International Ratio 1.02 06/23/182015 Prothrombin Time 13.4 seconds 06/23/182015 Albumin 4.3 g/dl 06/23/181929 Total Protein 7.8 g/dl 06/23/181929 Alkaline Phosphatase 82 U/L 06/23/181929 Alanine Aminotransferase (ALT/SGPT) 24 U/L 06/23/180 Aspartate Amino Transf (AST/SGOT) 44 U/L H 06/23/181929 Total Bilirubin 0.4 mg/dl 06/23/180 Calcium Level 9.7 mg/dl 06/23/181929 EKG / Imaging Imaging PATIENT NAME: Sharon Shaver : 1930 MR: [id number] V: [id number] EXAM DATE: ORDERING PHYSICIAN: KELVIN TEE TECHNOLOGIST: Location: [facility] Patient: Sharon Shaver : 1930 Visit/Account:[id number] Date of Sevice: 06/23/2018 EXAMINATION: HIP RIGHT HISTORY: fall, right hip tenderness COMPARISON: 05/20/2014 FINDINGS: AP view of the pelvis and crosstable lateral view of the right hip are obtained. Bones: Mildly displaced acute intertrochanteric fracture of the proximal right femur. The bones are osteopenic. Joint spaces: No dislocation. Disc degenerative changes in the visible lower lumbar spine. Hardware: Sutures in the lower abdominal wall along the midline. Soft tissues: Negative. IMPRESSION: Acute intertrochanteric fracture of the right femur. Report Dictated By: Magen Deleon MD at 06/23/2018 9:21 PM Report E-Signed By: Magen Deleon MD at 06/23/2018 9:24 PM WSN:[id number] PATIENT NAME: Sharon Shaver : 1930 MR: [id number] V: [id number] EXAM DATE: ORDERING PHYSICIAN: KELVIN TEE TECHNOLOGIST: Location: [facility] Patient: Sharon Shaver : 1930 Visit/Account:[id number] Date of Sevice: 06/23/2018 CHEST SINGLE AP Indication: Preop. Comparison: August 13, 2017. Findings: Heart size within normal limits. Mild calcification within the aortic knob. There is no focal infiltrate or lobar consolidation. Mild chronic interstitial opacities. Nonspecific linear striated opacity projecting over the right upper lung, possibly related to an overlapping structure. No pneumothorax or pleural effusion. IMPRESSION: 1. No acute cardiopulmonary process. 2. Chronic interstitial changes. 3. Nonspecific linear striated opacity projecting over the right upper lung, possibly related to an overlapping structure. Report Dictated By: Stanley Longoria MD at 06/23/2018 11:06 PM Report E-Signed By: Stanley Longoria MD at 06/23/2018 11:07 PM WSN:[id number] Assessment and Plan Problems: (1) Intertrochanteric fracture Status: Acute Assessment & Plan: Mrs. Shaver should be a reasonable candidate for surgery, but will certainly be at some increased risk due to her age and history of CVA. Her lab, CXR, EKG are rather unremarkable. She is asymptomatic from a cardiac standpoint. We will hold her aspirin until after surgery. She will need DVT prophylaxis post-op. (2) PMR (polymyalgia rheumatica) Status: Chronic Assessment & Plan: She has been steroid dependent (currently on prednisone 5mg daily). Will start stress dose IV Solu-Cortef tonight and continue for a couple of doses after surgery. Will then transition back to oral prednisone. (3) Aortic stenosis Status: Chronic Assessment & Plan: Borderline on echocardiogram approximately one year ago. She does appear to be relatively asymptomatic. (4) Benign essential hypertension Onset Date: 09/09/2014 Status: Chronic Assessment & Plan: She has been managed with losartan. Will plan on continuing with parameters. (5) COPD (chronic obstructive pulmonary disease) Status: Chronic Assessment & Plan: Will continue oxygen therapy. She has not been on respiratory treatments up to this point. Will start if needed. (6) CVA (cerebral vascular accident) Status: Chronic Assessment & Plan: She has some minor right LE paresis, which probably contributed to her fall. This may complicate her rehab. She has been on aspirin therapy, which will be held pre-op and restarted post-operatively. Copies to: DELANEY BLAKELY MD ; Venous Thromboembolism Antithrombotics Is Pt On Any Antithrombotics?: No (upcoming surgery) Exam Sepsis Risk: No Definite Risk Problem Qualifiers (1) Intertrochanteric fracture: Encounter type: initial encounter Fracture type: closed Fracture alignment: displaced Laterality: right Qualified Codes: S72.141A - Displaced intertrochanteric fracture of right femur, initial encounter for closed fracture SHRAVAN CAPONE MD Jun 23, 2018 23:30
[2018-06-23] MEDS ORDERED: HYPROMELLOSE 0.4% LUB 15ML BTL OU PRN (23:50)
[2018-06-24] VITALS (19 sets, daily range): BP systolic 113–162; BP diastolic 64–79; Ht 162.6 cm; Wt 50.6 kg
[2018-06-24] MEDS ORDERED: PCA LOCKBOX KEYS XX ONE ×2 (00:25→00:32)
[2018-06-24] MEDS: NS(*) 0.9% 1000 ML BAG 1,000 ML IV PRN ×2 (00:36→20:59)
[2018-06-24] MEDS ORDERED: ROPIVACAINE 0.2% 20 ML VIAL ONE ×2 (07:30→07:31)
[2018-06-24] MEDS ORDERED: MIDAZOLAM 2 MG/2 ML VIAL ONE (07:31)
[2018-06-24] MEDS ORDERED: PCA LOCKBOX KEYS XX PRN (07:55)
[2018-06-24] MEDS ORDERED: NALOXONE HCL 0.4 MG/ML VIAL IVP PRN (07:55)
[2018-06-24] MEDS ORDERED: ONDANSETRON 4 MG/2 ML VIAL ONE (07:59)
[2018-06-24] MEDS ORDERED: PROPOFOL EMUL(*) 10MG/ML 20 ML 20 ML ONE (07:59)
[2018-06-24] MEDS ORDERED: DEXAMETHASONE SOD PHOS 10MG/ML ONE (07:59)
[2018-06-24] MEDS ORDERED: SUCCINYLCHOL CHL 200MG/10ML VL ONE (07:59)
[2018-06-24] MEDS ORDERED: CLINDAMYCIN(*) 600 MG/NS 50 ML 50 ML IVPB ONE (08:00)
[2018-06-24] MEDS ORDERED: PHENYLEPHRINE 10 MG/1 ML VIAL ONE (08:31)
--- NOTE | 2018-06-24 09:48 | RADIOLOGY IMAGING REPORT ---
FACILITY: [facility] - [place] PATIENT NAME: Sharon Shaver : 1930 MR: [id number] V: [id number] EXAM DATE: ORDERING PHYSICIAN: HANNAH COX TECHNOLOGIST: [facility] Patient: Sharon Shaver : 1930 Visit/Account:[id number] Date of Sevice: 06/24/2018 C-ARM FLUORO 1 HR COMPARISON: None. HISTORY: "Right gamma nail" FINDINGS: Fluoroscopy was utilized in the operating room by the ordering physician. No radiologist was present. There are 3 saved images. These demonstrate gamma nail internal fixation of the right femoral neck, affixed distally with a single interlocking screw. No hardware-related complications are evident. Fra cture lines are not discretely evident on this exam. There are mild degenerative changes in the right hip. The fluoroscopy time was 1 minute 4 seconds. DOSE: DAP was 0.9 647 Gy*cm2. IMPRESSION: Fluoroscopy. Report Dictated By: Christiano Neumann at 06/24/2018 9:43 AM Report E-Signed By: Christiano Neumann at 06/24/2018 9:46 AM WSN:[id number]
[2018-06-24] MEDS: HYDROCORTISONE 100 MG/2 ML IVP SCH ×2 (12:28→21:00)
--- NOTE | 2018-06-24 13:47 | Hospitalist Progress Note ---
Subjective Progress Notes Subjective 87F admitted for fall with R hip Fx, YARELIS overnight, to surgery this am. Patient Complains of: Cardiovascular: No: Chest Pain Gastrointestinal: No Nausea, No Vomiting Physical Exam Vital Signs Date Time Temp Pulse Resp B/P (MAP) Pulse Ox O2 Delivery O2 Flow Rate FiO2 06/24/18 12:26 79 06/24/18 10:55 70 12 06/24/18 10:55 97.5 141/73 (95) Nasal Cannula 2.0 Intake and Output 06/24/18 07:00 Intake Total 100 ml Output Total 800 ml Balance -700 ml Intake Oral 100 ml Output Urine Total 800 ml General Appearance: Alert, Awake, No Acute Distress, Afebrile Neuro: No Gross deficits ENT: Normal Cardiovascular: Normal Rhythm & Peripheral Pulses Respiratory: No Respiratory Distress Extremities: Soft and Non Tender, Warm, Pulses, Perfused Integumentary: Skin Intact without Lesion / Mass Result Diagram: 06/23/18192906/23/181929 Monitor Interpretation: Sinus Bradycardia Assessment and Plan Problems: (1) Intertrochanteric fracture Status: Acute Assessment & Plan: Her lab, CXR, EKG are rather unremarkable. She is asymptomatic from a cardiac standpoint. We will hold her aspirin until after randall ingrid. She will need DVT prophylaxis post-op. Surgery 06.24.2018 (2) PMR (polymyalgia rheumatica) Status: Chronic Assessment & Plan: She has been steroid dependent (currently on prednisone 5mg daily). Stress dose IV Solu-Cortef for a couple of doses after surgery. Will then transition back to oral prednisone. (3) Aortic stenosis Status: Chronic Assessment & Plan: Borderline on echocardiogram approximately one year ago. She does appear to be relatively asymptomatic. (4) Benign essential hypertension Onset Date: 09/09/2014 Status: Chronic Assessment & Plan: She has been managed with losartan. Will plan on continuing with parameters. (5) COPD (chronic obstructive pulmonary disease) Status: Chronic Assessment & Plan: Will continue oxygen therapy. She has not been on respiratory treatments up to this point. Will start if needed. (6) CVA (cerebral vascular accident) Status: Chronic Assessment & Plan: She has some minor right LE paresis, which probably contributed to her fall. This may complicate her rehab. She has been on aspirin therapy, which will be held pre-op and restarted post-operatively. Exam Sepsis Risk: No Definite Risk Problem Qualifiers (1) Intertrochanteric fracture: Encounter type: initial encounter Fracture type: closed Fracture alignment: displaced Laterality: right Qualified Codes: S72.141A - Displaced intertrochanteric fracture of right femur, initial encounter for closed fracture JERMAN MCGILL DO Jun 24, 2018 13:47
[2018-06-24] MEDS: LOSARTAN POTASSIUM 50 MG TAB PO SCH (14:23)
[2018-06-24] MEDS: ACETAMIN/CODEINE #3 300-30 MG PO PRN (14:33)
[2018-06-24] MEDS: CLINDAMYCIN(*) 600 MG/NS 50 ML 50 ML IVPB SCH (17:23)
[2018-06-25] MEDS: CLINDAMYCIN(*) 600 MG/NS 50 ML 50 ML IVPB SCH ×2 (00:20→09:36)
[2018-06-25] MEDS: ACETAMIN/CODEINE #3 300-30 MG PO PRN (00:20)
--- NOTE | 2018-06-25 01:12 | OPERATIVE REPORT 1 ---
EVENT DATE: June 23, 2018 SURGEON: Abner Londono MD ANESTHESIOLOGIST: Ismael Hubbard MD ANESTHESIA: General endotracheal anesthesia. BUCKET TURNER: TOM Uriostegui PREOPERATIVE DIAGNOSIS Right intertrochanteric hip fracture. POSTOPERATIVE DIAGNOSIS Right intertrochanteric hip fracture. PROCEDURE PERFORMED Closed reduction and gamma nailing of right intertrochanteric hip fracture. INTRAVENOUS FLUIDS 750 mL. ESTIMATED BLOOD LOSS 40 mL. IMPLANTS A 125 mm gamma nail with a 95 mm lag screw and a 35 mm distal locking bolt, plus a lag screw locking nut. SPECIMENS None. DRAINS None. COMPLICATIONS None. DISPOSITION Postanesthesia care unit. INDICATIONS FOR SURGERY Ms. Shaver is an 87-year-old female who sustained a ground-level fall while at home yesterday. She presented to the emergency department with right hip pain and an inability to bear weight on that right lower extremity. Her imaging studies revealed a mildly displaced right intertrochanteric hip fracture. She was cleared for surgery by our hospitalist and brought to the operating room this morning for fixation of her hip fracture. Prior to surgery, I discussed in detail with the patient and her the possible risks of surgery, including bleeding, infection, embolus, need for further surgery, failure of instrumentation, and other unforeseen medical and surgical complications, including , blindness, sexual dysfunction, autonomic nervous system dysfunction, et cetera. DESCRIPTION OF PROCEDURE At time of surgery, we brought the patient to the operating room, and she was positioned on our fracture table. Under fluoroscopic guidance, adduction and some traction were used, as well as some internal rotation of the hip, to align the fracture. The patient was then prepped and draped in the standard sterile orthopedic fashion. All bony protuberances and soft tissues were well padded in the standard fashion. Care was taken to maintain appropriate perfusion pressures during anesthesia. At the conclusion of the procedure, sponge and needle counts were correct x2. Fluoroscopy was used to determine the appropriate incision point. A lateral incision was made proximal to the greater trochanter. A guidewire was placed on the tip of the greater trochanter and driven down the shaft of the femur. This was accomplished using an AP and lateral fluoroscopy. The opening machine drill was then used to drill down past the level of the lesser trochanter. A 125 mm nail was selected and driven into place with a mallet. This was also done under fluoroscopic guidance. We then placed the appropriate sleeve for placement of the lag screw. An incision was made at the appropriate level, and the iliotibial band was split. The trocar was placed down onto bone, and we then placed a guidewire up through the femoral neck and into the femoral head, taking care not to violate the hip joint itself. A drill was then placed over the wire and appropriate drilling was performed. The 95 mm lag screw was selected and placed over the guidewire and fully seated. The guidewire was withdrawn, and the locking nut was then placed into the groove on the lag screw. This was tightened down, and we made sure that it was appropriately seated with no ability to rotate the lag screw. The fluoroscopy was then taken down distally, and a small distal incision was made to facilitate placement of the distal locking bolt. The trocar was placed down on bone, and the drill was used to drill across the bone through the device. A 35 mm screw was selected and placed through the bone and the nail. The insertion handle and guide was then removed from the device, and final imaging studies were obtained at the hip as well as distally. The wound was then irrigated with copious sterile saline solution, and wounds were closed using interrupted inverted sutures for the subcutaneous tissue and then tony for the skin. Sponge and needle counts were correct x2. POSTOPERATIVE CARE PLAN Ms. Shaver will be made weightbearing as tolerated. She will work with Physical Therapy, and the hospitalist will manage any medical issues. She will follow up with me in my clinic in two weeks' time for staple removal and examination. RAVINDRA
[2018-06-25 03:44] VITALS: BP 128/74
[2018-06-25 07:48] VITALS: BP 139/75
[2018-06-25] MEDS ORDERED: DIAZEPAM 2 MG TAB PO PRN (08:40)
[2018-06-25] MEDS: POLYETHYLENE GLYCOL 17 GM PKT PO SCH (09:35)
[2018-06-25] MEDS: ASPIRIN 325 MG ENTERIC COATED PO SCH (09:35)
[2018-06-25] MEDS: LOSARTAN POTASSIUM 50 MG TAB PO SCH (09:35)
[2018-06-25] MEDS: HYDROCORTISONE 100 MG/2 ML IVP SCH (09:36)
--- NOTE | 2018-06-25 12:00 | NUR ---
Physical Therapy Impression PT eval complete. Pt requires Min A for bed mobility, CGA to stand, and CGA to ambulate 15' with RW. Pt was Mod I with functional mobility and ADLs prior to hip fracture. Pt would benefit from short-term subacute rehab prior to returning home in order to increase independence with functional mobility. Physical Therapy Goals 1. Mod I bed mobility. 2. Mod I transfers. 3. Mod I gait x 150' with RW. 4. Ascend/descend 1 step SBA. Patient's Goals
[2018-06-25 13:03] VITALS: BP 116/68
--- NOTE | 2018-06-25 13:32 | Hospitalist Progress Note ---
Subjective Progress Notes Subjective She was admitted after hip fracture. She has no complaints this morning. She had no acute events overnight. Patient Complains of: Cardiovascular: No: Chest Pain Respiratory: No: Shortness of Breath Physical Exam Vital Signs Date Time Temp Pulse Resp B/P (MAP) Pulse Ox O2 Delivery O2 Flow Rate FiO2 06/25/18 13:03 98.4 89 14 116/68 (84) 92 Nasal Cannula 2.0 Intake and Output 06/25/18 00:00 Intake Total 2031 ml Output Total 1070 ml Balance 961 ml Intake Oral 250 ml IV Total 1781 ml Output Urine Total 1050 ml Estimated Blood Loss 20 ml General Appearance: Alert, Awake, No Acute Distress, Afebrile Neuro: No Gross deficits Cardiovascular: Regular Rate and Rhythm Respiratory: No Respiratory Distress, Clear to Auscultation GI: Soft and Non-Tender Psych: Alert & Oriented X3, Appropriate Mood & Affect Result Diagram: 06/23/18192906/23/181929 Monitor Interpretation: Sinus Bradycardia Assessment and Plan Problems: (1) Intertrochanteric fracture Status: Acute Assessment & Plan: She had surgical repair 06/24. She will be placed on Aspirin for DVT prophylaxis. She will have PT/OT evaluation. (2) PMR (polymyalgia rheumatica) Status: Chronic Assessment & Plan: She has been steroid dependent (currently on prednisone 5mg daily). She was stress dosed with IV Solu-Cortef for a couple of doses after surgery. She will resume her usual oral prednisone tomorrow. (3) Aortic stenosis Status: Chronic Assessment & Plan: Borderline on echocardiogram approximately one year ago. She does appear to be relatively asymptomatic. (4) Benign essential hypertension Onset Date: 09/09/2014 Status: Chronic Assessment & Plan: She has been managed with losartan. Will plan on continuing with parameters. (5) COPD (chronic obstructive pulmonary disease) Status: Chronic Assessment & Plan: Will continue oxygen therapy. She has not been on respirator y treatments up to this point. Will start if needed. (6) CVA (cerebral vascular accident) Status: Chronic Assessment & Plan: She has some minor right LE paresis, which probably contributed to her fall. This may complicate her rehab. She has been on aspirin therapy, which was held pre-op and restarted post-operatively. Exam Sepsis Risk: No Definite Risk Problem Qualifiers (1) Intertrochanteric fracture: Encounter type: initial encounter Fracture type: closed Fracture alignment: displaced Laterality: right Qualified Codes: S72.141A - Displaced intertrochanteric fracture of right femur, initial encounter for closed fracture ANITRA ROJO Jun 25, 2018 13:32
--- NOTE | 2018-06-25 15:41 | NUR ---
ECF Referral - met with patient to discuss need for further strengthening prior to going home. States she will be the hardest working patient we've ever seen because she is going home in a few days! Explained rehab philosophy. PASRR negative, will meet qualifying stay requirements on 06/26. If medically stable, can admit to ECF 06/26.
[2018-06-25 19:37] VITALS: BP 163/96
[2018-06-25 23:10] VITALS: BP 160/76
[2018-06-26 03:51] VITALS: BP 163/78
[2018-06-26] MEDS: ACETAMIN/CODEINE #3 300-30 MG PO PRN ×2 (04:11→11:26)
[2018-06-26 07:22] VITALS: BP 162/79
[2018-06-26] MEDS ORDERED: predniSONE 5 MG TAB PO SCH (09:00)
[2018-06-26] MEDS: POLYETHYLENE GLYCOL 17 GM PKT PO SCH (09:01)
[2018-06-26] MEDS: LOSARTAN POTASSIUM 50 MG TAB PO SCH (09:01)
[2018-06-26] MEDS: ASPIRIN 325 MG ENTERIC COATED PO SCH (09:01)
--- NOTE | 2018-06-26 11:05 | Transfer Summary (ECF/SWB) ---
Transfer Summary (ECF/SWB) Problems: (1) Intertrochanteric fracture Status: Acute Assessment & Plan: She had surgical repair 06/24. She will be placed on Aspirin for DVT prophylaxis. She had PT/OT evaluation and recommended short term rehab. She will be transferred to [facility] for rehab. (2) PMR (polymyalgia rheumatica) Status: Chronic Assessment & Plan: She has been steroid dependent (currently on prednisone 5mg daily). She was stress dosed with IV Solu-Cortef for a couple of doses after surgery. She will resume her usual oral prednisone 06/26. (3) Aortic stenosis Status: Chronic Assessment & Plan: Borderline on echocardiogram approximately one year ago. She does appear to be relatively asymptomatic. (4) Benign essential hypertension Status: Chronic Assessment & Plan: She has been managed with losartan. Will plan on continuing with parameters. (5) COPD (chronic obstructive pulmonary disease) Status: Chronic Assessment & Plan: Will continue oxygen therapy. She has not been on respiratory treatments up to this point. Will start if needed. (6) CVA (cerebral vascular accident) Status: Chronic Assessment & Plan: She has some minor right LE paresis, which probably contributed to her fall. This may complicate her rehab. She has been on aspirin therapy, which was held pre-op and restarted post-operatively. Latest Vital Signs Vital Signs Date Time Temp Pulse Resp B/P (MAP) Pulse Ox O2 Delivery O2 Flow Rate FiO2 06/26/18 10:25 94 Nasal Cannula 06/26/18 07:24 2.0 06/26/18 07:22 98.0 68 14 162/79 (106) Result Diagram: 06/23/18192906/23/181929 Condition: Improved Disposition: SNF/NH Treatment Goals and Plan The above acute care issues are resolving and/or stable. Patient requires care home and/or skilled rehabilitation and is ready for admission to Extended Care. Any change in condition is described below. Services Required: PT, OT Problem Qualifiers (1) Intertrochanteric fracture: Encounter type: initial encounter Fracture type: closed Fracture alignment: displaced Laterality: right Qualified Codes: S72.141A - Displaced intertrochanteric fracture of right femur, initial encounter for closed fracture ANITRA ROJO Jun 26, 2018 11:05
[2018-06-26 11:18] VITALS: BP 144/77
== END 2018-06-26 12:40 | DRG 481 ==
LOC: ER 19:46 → MED 22:00
PROVIDERS: ADMIT Internal Medicine; ATTEND Internal Medicine
PROC: 0QS636Z Reposition Right Upper Femur with Intramedullary Internal Fixation Device, Percutaneous Approach (ICD-10-PCS; principal; 2018-06-23)
DX: S72.141A Displaced intertrochanteric fracture of right femur, initial encounter for closed fracture (principal); I69.351 Hemiplegia and hemiparesis following cerebral infarction affecting right dominant side; M35.3 Polymyalgia rheumatica; I35.0 Nonrheumatic aortic (valve) stenosis; I10 Essential (primary) hypertension; J44.9 Chronic obstructive pulmonary disease, unspecified; F41.8 Other specified anxiety disorders; R01.1 Cardiac murmur, unspecified; M81.0 Age-related osteoporosis without current pathological fracture; W18.30XA Fall on same level, unspecified, initial encounter; Z88.0 Allergy status to penicillin; Z88.8 Allergy status to other drugs, medicaments and biological substances; Z87.891 Personal history of nicotine dependence; Z79.52 Long term (current) use of systemic steroids
CPT/HCPCS: 71045; 76000; 76942; 81001; 82040; 82247; 82310; 82374; 82435; 82565; 82947; 84075; 84132; 84155; 84295; 84450; 84460; 84520; 85025; 85610; 85730; 93005; 96374; 96375; 96376; 97162; 99285; C1713; J0330; J1100; J1720; J2250; J2270; J2370; J2405; J2704; J2795; J3010; J3490; J7030; J7512

== ENCOUNTER → 2018-06-23 | Outpatient (CLI) | payer MEDICARE ==
[~2018-06-23] MED LIST changes: +ACET-1718 PO
[2018-06-24 10:15] VITALS: BMI 19.1
== END ==
LOC: AMB 19:00
PROVIDERS: ATTEND Nurse Practitioner
DX: M25.551 Pain in right hip (principal); W01.0XXA Fall on same level from slipping, tripping and stumbling without subsequent striking against object, initial encounter
CPT/HCPCS: A0425; A0433

== ENCOUNTER 2018-06-26 12:40 | Inpatient (IN) | payer MEDICARE ==
[2018-06-24 10:15] VITALS: Ht 137.2 cm; Wt 50.2 kg
[~2018-06-26] VITALS: Ht 137.2 cm; Wt 50.2 kg
[2018-06-26 13:00] VITALS: BP 143/63
[2018-06-26] MEDS ORDERED: HYPROMELLOSE 0.4% LUB 15ML BTL OU PRN (13:14)
[2018-06-26] MEDS ORDERED: DIAZEPAM 2 MG TAB PO PRN (13:14)
--- NOTE | 2018-06-26 13:32 | Consultant Pharmacy Review ---
Cut Off Machine Operator Review Medication Review Do All Mecications have a Diag: Yes Beers Criteria Medication 2014 Benzodiazapines (long acting): Diazepam Disease-Drug Interactions History of Falls/Fractures: Benzodiazepines, Opioids Other General Cautions Lexicomp Interaction Analysis A = No known interaction C = Monitor therapy X = Avoid combination B = No action needed D = Consider therapy modification Drugs in this analysis: Cozaar; DiazePAM; Ecotrin Arthritis Strength [OTC]; MiraLax [OTC]; Natural Balance Tears [OTC] [DSC]; PredniSONE; Tylenol with Codeine #3 * Drug-Drug Interactions D DiazePAM (WINE FERMENTER Depressants) Tylenol with Codeine #3 (Opioid Analgesics) C Ecotrin Arthritis Strength [OTC] (Salicylates) PredniSONE (Corticosteroids (Systemic)) Pneumococcal Vaccine HX Pneumo Vac ([id number]): Yes (2002) HX Pneumo Vac (Pneumovax): Yes Comments Regarding the Review Patient is up to date on influenza and pneumococcal vaccinations. Monitor patient for falls and respiratory depression due to Tylenol #3 and diazepam use. MUKESH FAULKNER Jun 26, 2018 13:32
--- NOTE | 2018-06-26 15:31 | NUR ---
Occupational Therapy Impression Pt. required Min A to perform sit > stand transfers from toilet.Pt. performed grooming (handwashing activity) standing sink front with SBA. Continue with POC. Occupational Therapy Goals 1. Pt. to perform dressing activities with Mod I. 2. Pt. to perform toileting activities with Mod I. 3. Pt. to perform showering activities with Min A. 4. Pt. to perform light meal prep with I. 5. Pt. to improve Merritt index of ADL score by 2 points. Patient's Goal
--- NOTE | 2018-06-26 16:24 | OT ECF NOTE ---
Type of Note: Initial Note Primary Medical Diagnosis: Right Interchanteric fracture Occupational Therapy Evaluation Date: 06-26-18 SUBJECTIVE: Prior Hospitalization: [facility] medical/surgical floor from 06-23-18 to 06-26-18. Prior Level of Function: Independent with all ADL/ IADL activities. At times, pt. would ambulate with a cane. Prior Living Status: Single level house Spouse Community Services: Independent Home Accessibility: One step into home, walk in shower with grab bars. Equipment Owned: Cane Medical Complications/Past Medical History: Please refer to chart for details. Psychosocial Support: Supportive and family. Pain Scale (0-10): None stated during evaluation Hand Dominance: Right OBJECTIVE: Strength: MMT: Right Left Shoulder Flexion [*] [*] Elbow Flexion [*] [*] Wrist Extension [*] [*] Intranet Developer [*] [*] (5= normal, 4= good, 3= fair, 2= poor, 1= trace) ROM: Both upper extremities WFL Functional Transfer: Assistive Device: Front wheeled walker Gait belt Transfer Ability: Minimum assistance 1-person assist ADL: Upper body dressing: Assistive device: Upper body dressing ability: Lower body dressing: Assistive device: Lower body dressing ability: Toileting: Assistive device: Toileting ability: CGA Grooming/hygiene: Standing Assistive device: Grooming ability: SBA Bathing: Assistive device: Bathing ability: Standardized Assessment: Merritt Index of Activities of Daily Living- Pt. scored a 13/20 on this Index during the IE. ASSESSMENT: Pt. is a 87 year old female who fell at home and sustained a Right Introchanteric fracture that was surgically repaired by Dr. Londono on 06/24/18). Pt. resides in [place], with her in a one story home with 1 stair to access. Pt. has a previous history of a CVA, with residual right sided weakness. Pt. was independent with all ADL /IADL activities prior to surgery. Pt. was admitted to [facility] for continued rehab to increase independence in basic ADL as well as higher level IADL's (meal prep0. Problem List/Current Limitations: Pain Decreased WB Decreased activity caleb Generalized weakness Short Term Goals: 1. Pt. to perform dressing activities with Mod I. 2. Pt. to perform toileting activities with Mod I. 3. Pt. to perform showering activities with Min A. 4. Pt. to perform light meal prep with I. 5. Pt. to improve Merritt index of ADL score by 2 points. Continuous Mining Machine Coal Miner Goals: Return home. Patient Goals: Return home. Rehabilitation Prognosis: Good Barriers to Discharge: Previous medical history PLAN: The patient will benefit from skilled occupational therapy services 5 times per week for 2 weeks including: Ther ex ADL training Safety training Ther act IADL training Transfer training Adaptive equip training Bed mobility Thank you for this referral. If you have any questions, concerns, or comments about this report or plan, please contact me at . Skye Tapia, OTR/L Occupational Therapist RAVINDRA
--- NOTE | 2018-06-26 16:27 | Medical Nutrition Therapy ---
Nutrition Anthropometrics Height (Inches): 64 (stated) Weight (Pounds): 111 (on med unit) BMI: 19.1 Benson Nutrition Score: Benson Nutrition Risk Score: Dietary Referral Nutrition Risk Factors: Nutrition Risk Comment: Unplanned weight gain approx 5lbs since started pr ednisone Nutritional Diagnosis Nutritional Risk Acuity 3: Fx & > 80 yrs Nutritional Risk Acuity 4: Good Appetite, %IBW 90-100% Past Medical History: HTN, Typhoid fever, basal cell carcinoma, insomnia, inferiour public ramus fracture, LF shoulder pain, ulnar fracture, toxic multinodular goiter, neck pain, hearing loss, hemorrhoids, hemrrohoidectomy, edema, anxiety, mild COPD, vaginal prolapse, bladder surgery, hysterectomy, cateract extraction, osteoporosis, CVA, polymyalgia rheumatica, aortic stenosis, osteoporosis, benign essential hypertension Nutritional Acuity: 3-Mild Energy Requirement: 1200 (M- StJ) Protein Requirement: 60 (1.2gm/kg) Fluid Requirement: 1260 (25ml/kg) Nutrition Monitoring & Eval Nutrition Goals: Eat 75-100% Meal RD Patient Assessment Time: [address] Assessment Type: RD Assessment Patient Nutrition Acuity: 3-Mild Follow Up Date: Jul 03, 2018 Nutritional Comment: 2/5 Pt admitted s/p fx. Pt on regular diet. Has been eating 100% on med floor. alb 4.3, K+ 3.9. Will cont to monitor and encourage intake. KOREY FISCHER Jun 26, 2018 16:27
[2018-06-26] MEDS: ACETAMIN/CODEINE #3 300-30 MG PO PRN (19:03)
[2018-06-27] MEDS: ACETAMIN/CODEINE #3 300-30 MG PO PRN ×3 (04:42→21:11)
[2018-06-27 08:00] VITALS: BP 147/76
[2018-06-27] MEDS: predniSONE 5 MG TAB PO SCH (08:57)
[2018-06-27] MEDS: POLYETHYLENE GLYCOL 17 GM PKT PO SCH (08:57)
[2018-06-27] MEDS: LOSARTAN POTASSIUM 50 MG TAB PO SCH (08:57)
[2018-06-27] MEDS: ASPIRIN 325 MG ENTERIC COATED PO SCH (08:57)
--- NOTE | 2018-06-27 12:13 | NUR ---
Occupational Therapy Impression Min A sit<>stands from chair and toilet x4. SBA ambulation x45ft with RW. SpO2 WNL on 2L. Set-up UB dressing. Min A LB dressing with crutching contractor/sock aid education. CGA toileting with Min A for sit<>stand from toilet. Mod A sit to supine. Continue POC. Occupational Therapy Goals 1. Pt. to perform dressing activities with Mod I. 2. Pt. to perform toileting activities with Mod I. 3. Pt. to perform showering activities with Min A. 4. Pt. to perform light meal prep with I. 5. Pt. to improve Merritt index of ADL score by 2 points. Patient's Goal
[2018-06-27] MEDS ORDERED: BISACODYL 10 MG SUPP PR PRN (13:55)
[2018-06-27] MEDS ORDERED: MAGNESIUM HYDROXIDE* 30ML UDCP PO PRN (13:55)
--- NOTE | 2018-06-27 14:41 | NUR ---
Physical Therapy Impression Pt progressing well and tolerated increased ambulation distance. Anticipate Pt to progress quickly. Physical Therapy Goals 1. Pt to be modified indep with all bed mobility and supine to/from sit transfers 2. Pt to be modified indep with all sit to/from stand transfers from a variety of surfaces. 3. Pt to tolerate ambulation x 150' with least restrictive device and modified indep 4. Pt to caleb up/down platform step with least restrictive device and SBA/CGA 5. TUG test to improve to less than 60 seconds for clinical improvement. Patient's Goals
[2018-06-27 19:00] VITALS: BP 115/59
[2018-06-27] MEDS: DOCUSATE SODIUM 100 MG CAP PO SCH (21:09)
[2018-06-28 08:00] VITALS: BP 135/68
[2018-06-28] MEDS: LOSARTAN POTASSIUM 50 MG TAB PO SCH (09:00)
[2018-06-28] MEDS: DOCUSATE SODIUM 100 MG CAP PO SCH ×2 (09:21→21:00)
[2018-06-28] MEDS: ASPIRIN 325 MG ENTERIC COATED PO SCH (09:21)
[2018-06-28] MEDS: predniSONE 5 MG TAB PO SCH (09:21)
[2018-06-28] MEDS: POLYETHYLENE GLYCOL 17 GM PKT PO SCH (09:21)
--- NOTE | 2018-06-28 12:28 | NUR ---
Occupational Therapy Impression CGA ambulation 2x70ft with RW. SBA retrieving clothing from dresser. SBA toileting. SBA oral care standing sinkfront. SBA bathing. Independent UB dressing. Min A LB dressing with AE. SpO2 WNL on 1L. Pt progressing well towards goals. Occupational Therapy Goals 1. Pt. to perform dressing activities with Mod I. 2. Pt. to perform toileting activities with Mod I. 3. Pt. to perform showering activities with Min A. 4. Pt. to perform light meal prep with I. 5. Pt. to improve Merritt index of ADL score by 2 points. Patient's Goal
[2018-06-28] MEDS: ACETAMIN/CODEINE #3 300-30 MG PO PRN (13:07)
--- NOTE | 2018-06-28 15:03 | NUR ---
Physical Therapy Impression PT instructed patient in seated LE ther-ex with instruction to utilize UEs to assist in full AAROM of R) hip flexion. Pt reports increased pain with FAQ and marching on R) side, PT instructed pt to only complete 5 repetitions on this side. PT provided pt with handout of exercises, plan to advance as tolerated. Pt completed STS transfers with SBA and good demonstration of proper sequencing and safety. Ambulation x120' with RW, Spo2 89% on 0.5L O2, pt left on 1L at end of session while seated in chair. Physical Therapy Goals 1. Pt to be modified indep with all bed mobility and supine to/from sit transfers 2. Pt to be modified indep with all sit to/from stand transfers from a variety of surfaces. 3. Pt to tolerate ambulation x 150' with least restrictive device and modified indep 4. Pt to caleb up/down platform step with least restrictive device and SBA/CGA 5. TUG test to improve to less than 60 seconds for clinical improvement. Patient's Goals
[2018-06-28 16:10] VITALS: BP 114/69
--- NOTE | 2018-06-28 18:38 | PT ECF NOTE ---
Type of Note: Initial Note Primary Medical Diagnosis: Right Intertrochanteric fracture Physical Therapy Evaluation Date: 06-26-18 SUBJECTIVE: Prior Hospitalization: [facility] medical/surgical floor from 06-23-18 to 06-26-18. Prior Level of Function: Independent with all ADL/ IADL activities. At times, pt. would ambulate with a cane. Prior Living Status: Single level house; Spouse Community Services: Independent Home Accessibility: One step into home, walk in shower with grab bars. Equipment Owned: Cane Medical Complications/Past Medical History: Please refer to chart for details. Psychosocial Support: Supportive and family. Pain Scale (0-10): None stated during evaluation OBJECTIVE: Strength: No formal MMT due to R) hip fracture; L) LE WNL ROM: (please note any abnormalities) R) hip limited currently by stiffness; no posterior hip precautions. Sensation: (please note any abnormalities) no paresthesias reported Other Neuro findings: previous CVA with residual hemiparesis Bed Mobility: Not observed at time of eval; Med/Surg unit indicates Min assist. Assistive device: Transfers: CGA; Min A Assistive Device: Front wheeled walker Gait: CGA Assistive device: Front wheeled walker Stairs: Not yet addressed Assistive device: Timed Up and Go (>12 seconds indicated increased risk for falls): 1 minute 22 seconds. 10 meter walk test (0.6m/second cannot function independently): n/a Other Objective Measures: n/a ASSESSMENT: Pt. is a 87 year old female who fell at home and sustained a Right Intertrochanteric fracture that was surgically repaired by Dr. Londono on 06/24/18. Pt. resides in [place], with her in a one story home with 1 stair to access. Pt. has a previous history of a CVA, with residual right sided weakness. Pt. was independent with all ADL /IADL activities prior to surgery. Pt. was admitted to [facility] for continued rehab to increase independence in basic ADL as well as higher level IADL's. Problem List/Current Limitations: Pain, Decreased WB, Decreased activity caleb, Decreased strength, Decreased ROM, Decreased balance Generalized weakness Short Term Goals: 1. Pt to be modified indep with all bed mobility and supine to/from sit transfers 2. Pt to be modified indep with all sit to/from stand transfers from a variety of surfaces. 3. Pt to tolerate ambulation x 150' with least restrictive device and modified indep 4. Pt to caleb up/down platform step with least restrictive device and SBA/CGA 5. TUG test to improve to less than 60 seconds for clinical improvement. Marketing Campaign Analyst Goals: Pt to return home with assist of . Patient Goals: Return home Rehabilitation Prognosis: Good Barriers for Discharge: Decreased functional mobility PLAN: The patient will benefit from skilled physical therapy services 5 times per week for 2 weeks including: Therapeutic Exercise, Therapeutic Activities Transfer Training, Gait Training, Stair Training, ADL's, Safety Training, Pt/Caregiver Training, Bed Mobility Thank you for this referral. If you have any questions, concerns, or comments about this report or plan, please contact me at . h. Joi Mckeon, PT, MPT, OMS MTDD
[2018-06-29 08:00] VITALS: BP 143/80
[2018-06-29] MEDS: POLYETHYLENE GLYCOL 17 GM PKT PO SCH (08:54)
[2018-06-29] MEDS: predniSONE 5 MG TAB PO SCH (08:54)
[2018-06-29] MEDS: ASPIRIN 325 MG ENTERIC COATED PO SCH (08:55)
[2018-06-29] MEDS: DOCUSATE SODIUM 100 MG CAP PO SCH ×2 (08:55→21:00)
[2018-06-29] MEDS: LOSARTAN POTASSIUM 50 MG TAB PO SCH (09:00)
--- NOTE | 2018-06-29 10:17 | NUR ---
Occupational Therapy Impression SBA ambulation with RW. SBA with v/c's UB/LB dressing. SBA toileting. SBA grooming standing sinkfront. Poor safety awareness, poor insight into limitations, and minimal recall of education provided in previous OT txs (safety with RW/use of LB AE). Pt declining recommendation for speech consult, will complete cognitive assessment in next OT tx. Continue POC. Occupational Therapy Goals 1. Pt. to perform dressing activities with Mod I. 2. Pt. to perform toileting activities with Mod I. 3. Pt. to perform showering activities with Min A. 4. Pt. to perform light meal prep with I. 5. Pt. to improve Merritt index of ADL score by 2 points. Patient's Goal
--- NOTE | 2018-06-29 11:03 | ECF History & Physical ---
Transfer Summary (ECF/SWB) Problems: (1) Intertrochanteric fracture Status: Acute Assessment & Plan: She had surgical repair 06/24. She will be placed on Aspirin for DVT prophylaxis. She had PT/OT evaluation and recommended short term rehab. She will be transferred to [facility] for rehab. (2) PMR (polymyalgia rheumatica) Status: Chronic Assessment & Plan: She has been steroid dependent (currently on prednisone 5mg daily). She was stress dosed with IV Solu-Cortef for a couple of doses after surgery. She will resume her usual oral prednisone 06/26. (3) Aortic stenosis Status: Chronic Assessment & Plan: Borderline on echocardiogram approximately one year ago. She does appear to be relatively asymptomatic. (4) Benign essential hypertension Status: Chronic Assessment & Plan: She has been managed with losartan. Will plan on continuing with parameters. (5) COPD (chronic obstructive pulmonary disease) Status: Chronic Assessment & Plan: Will continue oxygen therapy. She has not been on respiratory treatments up to this point. Will start if needed. (6) CVA (cerebral vascular accident) Status: Chronic Assessment & Plan: She has some minor right LE paresis, which probably contributed to her fall. This may complicate her rehab. She has been on aspirin therapy, which was held pre-op and restarted post-operatively. Latest Vital Signs Vital Signs Date Time Temp Pulse Resp B/P (MAP) Pulse Ox O2 Delivery O2 Flow Rate FiO2 06/26/18 10:25 94 Nasal Cannula 06/26/18 07:24 2.0 06/26/18 07:22 98.0 68 14 162/79 (106) Result Diagram: 06/23/18192906/23/181929 Condition: Improved Disposition: SNF/NH Treatment Goals and Plan The above acute care issues are resolving and/or stable. Patient requires long-term and/or skilled rehabilitation and is ready for admission to Extended Care. Any change in condition is described below. Services Required: PT, OT Problem Qualifiers (1) Intertrochanteric fracture: Encounter type: initial encounter Fracture type: closed Fracture alignment: displaced Laterality: right Qualified Codes: S72.141A - Displaced intertrochanteric fracture of right femur, initial encounter for closed fracture ANITRA ROJO Jun 26, 2018 11:05 <Electronically signed by NASEEM FRAZIER> D/ [id number] CARISSA/KOFI CC: RAVINDRA
--- NOTE | 2018-06-29 14:15 | NUR ---
Physical Therapy Impression Pt progressing well with PT tx. Anticipate DC after successful stair training. Physical Therapy Goals 1. Pt to be modified indep with all bed mobility and supine to/from sit transfers 2. Pt to be modified indep with all sit to/from stand transfers from a variety of surfaces. 3. Pt to tolerate ambulation x 150' with least restrictive device and modified indep 4. Pt to caleb up/down platform step with least restrictive device and SBA/CGA 5. TUG test to improve to less than 60 seconds for clinical improvement. Patient's Goals
[2018-06-29 15:15] VITALS: BP 129/73
[2018-06-30 08:14] VITALS: BP 154/81
[2018-06-30] MEDS: DOCUSATE SODIUM 100 MG CAP PO SCH ×2 (09:12→21:17)
[2018-06-30] MEDS: predniSONE 5 MG TAB PO SCH (09:12)
[2018-06-30] MEDS: ASPIRIN 325 MG ENTERIC COATED PO SCH (09:12)
[2018-06-30] MEDS: POLYETHYLENE GLYCOL 17 GM PKT PO SCH (09:12)
[2018-06-30] MEDS: LOSARTAN POTASSIUM 50 MG TAB PO SCH (09:14)
[2018-06-30] MEDS: ACETAMIN/CODEINE #3 300-30 MG PO PRN (10:33)
[2018-06-30 16:46] VITALS: BP 129/73
[2018-07-01 07:31] VITALS: BP 140/71
[2018-07-01] MEDS: LOSARTAN POTASSIUM 50 MG TAB PO SCH (09:00)
[2018-07-01] MEDS: POLYETHYLENE GLYCOL 17 GM PKT PO SCH (09:00)
[2018-07-01] MEDS: DOCUSATE SODIUM 100 MG CAP PO SCH ×2 (09:27→21:07)
[2018-07-01] MEDS: ASPIRIN 325 MG ENTERIC COATED PO SCH (09:28)
[2018-07-01] MEDS: predniSONE 5 MG TAB PO SCH (09:29)
[2018-07-01] MEDS: ACETAMIN/CODEINE #3 300-30 MG PO PRN (13:01)
[2018-07-01 20:11] VITALS: BP 122/60
[2018-07-02 07:40] VITALS: BP 141/70
[2018-07-02] MEDS: LOSARTAN POTASSIUM 50 MG TAB PO SCH (08:51)
[2018-07-02] MEDS: predniSONE 5 MG TAB PO SCH (08:52)
[2018-07-02] MEDS: DOCUSATE SODIUM 100 MG CAP PO SCH ×2 (08:52→20:12)
[2018-07-02] MEDS: ASPIRIN 325 MG ENTERIC COATED PO SCH (08:52)
[2018-07-02] MEDS: POLYETHYLENE GLYCOL 17 GM PKT PO SCH (08:53)
--- NOTE | 2018-07-02 13:22 | NUR ---
Occupational Therapy Impression SBA ambulation x200ft with RW. Mod (I) LB dressing with recall for use of cruise coordinator/sock aid. Handouts provided for home use. MOCA score 2530. Improved score from 05/21/18 with outpatient speech (). Pt progressing well towards goals. Occupational Therapy Goals 1. Pt. to perform dressing activities with Mod I. 2. Pt. to perform toileting activities with Mod I. 3. Pt. to perform showering activities with Min A. 4. Pt. to perform light meal prep with I. 5. Pt. to improve Merritt index of ADL score by 2 points. Patient's Goal
[2018-07-02 15:52] VITALS: BP 135/79
--- NOTE | 2018-07-02 17:40 | Medical Nutrition Therapy ---
Nutrition Anthropometrics Height (Inches): 54.00 Height (Calculated Centimeters: [phone] Weight (Pounds): 111 (on med unit) Weight (Calculated Kilograms): 51.710 BMI: 19.1 Benson Nutrition Score: Probably Inadequate Benson Nutrition Risk Score: 16 Dietary Referral Nutrition Risk Factors: Nutrition Risk Comment: Unplanned weight gain approx 5lbs since started prednisone Nutritional Diagnosis Nutritional Risk Acuity 3: Fx & > 80 yrs Nutritional Risk Acuity 4: Good Appetite, %IBW 90-100% Past Medical History: HTN, Typhoid fever, basal cell carcinoma, insomnia, inferiour public ramus fracture, LF shoulder pain, ulnar fracture, toxic multinodular goiter, neck pain, hearing loss, hemorrhoids, hemrrohoidectomy, edema, anxiety, mild COPD, vaginal prolapse, bladder surgery, hysterectomy, cateract extraction, osteoporosis, CVA, polymyalgia rheumatica, aortic stenosis, osteoporosis, benign essential hypertension Nutritional Acuity: 3-Mild Energy Requirement: 1200 (M- StJ) Protein Requirement: 60 (1.2gm/kg) Fluid Requirement: 1260 (25ml/kg) Nutrition Monitoring & Eval Nutrition Goals: Drink > 1200 cc/day Nutrition Follow-Up: Good Intake RD Patient Assessment Time: [address] Assessment Type: RD Re-Assessment Patient Nutrition Acuity: 3-Mild Follow Up Date: Jul 10, 2018 Nutritional Comment: 2 Pt admitted s/p fx. Pt on regular diet. Has been eating 100% on med floor. alb 4.3, K+ 3.9. Will cont to monitor and encourage intake. BK 07/02 Pt cont on regular diet. Eating 75-100% of meals. No new wt. Will cont to monitor and encourage intake. KOREY FISCHER Jul 02, 2018 17:40
[2018-07-02] MEDS: ACETAMIN/CODEINE #3 300-30 MG PO PRN (19:40)
[2018-07-03 07:30] VITALS: BP 137/69
[2018-07-03] MEDS: LOSARTAN POTASSIUM 50 MG TAB PO SCH (08:57)
[2018-07-03] MEDS: POLYETHYLENE GLYCOL 17 GM PKT PO SCH (08:57)
[2018-07-03] MEDS: DOCUSATE SODIUM 100 MG CAP PO SCH ×2 (08:57→20:48)
[2018-07-03] MEDS: predniSONE 5 MG TAB PO SCH (08:58)
[2018-07-03] MEDS: ASPIRIN 325 MG ENTERIC COATED PO SCH (09:00)
--- NOTE | 2018-07-03 09:52 | NUR ---
5-day MDS completed with pt. C: 13, D: 02, E: no concerns, Q: pt expects to DC to community, no referrals made yet, but may be needed. SW will continue to follow for DC needs. Care Conference scheduled for this afternoon.
--- NOTE | 2018-07-03 11:47 | NUR ---
Occupational Therapy Impression Independent supine to sit. SBA ambulation 1x030lk with RW. Pt reporting no increase in pain, good tolerance with no loss of balance. Mod (I) simulated light meal prep task. Good dynamic balance reaching above and below waist height for items in cupboard. Excellent safety awareness and use of RW and walker tray. Educated on AE recommendations-handout provided. Items include RW, walker tray, toilet riser, sock aid, associate professor of biology, and shower chair. Pt hesitant for recommendations. SpO2 WNL on .5L with activity. Pt progressing well towards OT goals. Occupational Therapy Goals 1. Pt. to perform dressing activities with Mod I. 2. Pt. to perform toileting activities with Mod I. 3. Pt. to perform showering activities with Min A. 4. Pt. to perform light meal prep with I. 5. Pt. to improve Merritt index of ADL score by 2 points. Patient's Goal
--- NOTE | 2018-07-03 13:02 | NUR ---
Physical Therapy Impression Pt is doing well with mobility. She tolerated trial of a platform step with FWW to simulate entry into pt's home. VC's for sequencing. Pt declined sitting at dining table for meal. Cont. with POC. Physical Therapy Goals 1. Pt to be modified indep with all bed mobility and supine to/from sit transfers 2. Pt to be modified indep with all sit to/from stand transfers from a variety of surfaces. 3. Pt to tolerate ambulation x 150' with least restrictive device and modified indep 4. Pt to caleb up/down platform step with least restrictive device and SBA/CGA 5. TUG test to improve to less than 60 seconds for clinical improvement. Patient's Goals
[2018-07-03 17:15] VITALS: BP 138/78
[2018-07-04 07:40] VITALS: BP 144/74
[2018-07-04] MEDS: DOCUSATE SODIUM 100 MG CAP PO SCH ×2 (08:53→19:19)
[2018-07-04] MEDS: ASPIRIN 325 MG ENTERIC COATED PO SCH (08:53)
[2018-07-04] MEDS: predniSONE 5 MG TAB PO SCH (08:54)
[2018-07-04] MEDS: POLYETHYLENE GLYCOL 17 GM PKT PO SCH (08:54)
[2018-07-04] MEDS: LOSARTAN POTASSIUM 50 MG TAB PO SCH (09:00)
--- NOTE | 2018-07-04 11:51 | NUR ---
Physical Therapy Impression Pt is showing improvement in carry over for use of FWW at all times. Pt completed TUG test x 3 with average score at 52.69 seconds. Majority of time spent with turns. No safety concerns noted with ambulation. Pt completed bed mobility with hospital bed raised to 30" per 's report of their home set up. Pt requires CGA for R LE into bed and is I with supine to sit. Pt and her spouse report no concerns re: D/C home at this time. Cont. to recommend HH services upon D/C. May benefit from additional stair training on a platform step prior to D/C. Pt on room air, SpO2 at 92% with activity and at rest at end of session. Notified nursing; they will continue to monitor. Physical Therapy Goals 1. Pt to be modified indep with all bed mobility and supine to/from sit transfers 2. Pt to be modified indep with all sit to/from stand transfers from a variety of surfaces. 3. Pt to tolerate ambulation x 150' with least restrictive device and modified indep 4. Pt to caleb up/down platform step with least restrictive device and SBA/CGA 5. TUG test to improve to less than 60 seconds for clinical improvement. Patient's Goals
--- NOTE | 2018-07-04 12:06 | NUR ---
[place] MDS completed with pt. C: 15, D: 01, E: no concerns, Q: pt plans to return to community, referral sent for [facility] [place].
[2018-07-04] MEDS: ACETAMIN/CODEINE #3 300-30 MG PO PRN ×2 (13:17→19:19)
--- NOTE | 2018-07-04 14:24 | Hospitalist Progress Note ---
Subjective Progress Notes Subjective No new complaints. Physical Exam Vital Signs Date Time Temp Pulse Resp B/P (MAP) Pulse Ox O2 Delivery O2 Flow Rate FiO2 07/04/18 07:40 84 Room Air 07/04/18 07:40 98.9 78 16 144/74 (97) 0.5 Intake and Output 07/04/18 07:00 Intake Total 1560 ml Balance 1560 ml Intake Oral 1560 ml # Voids 7 # Bowel Movements 2 General Appearance: Alert, Awake, No Acute Distress Neuro: No Gross deficits Cardiovascular: Regular Rate and Rhythm (With 2/4 GILBERT heard at RUSB and LSB), No Edema Respiratory: No Respiratory Distress, Clear to Auscultation GI: Soft and Non-Tender (BS+) Extremities: Warm Integumentary: Other (Wound bandaged.) Psych: Appropriate Mood & Affect Assessment and Plan Problems: (1) Intertrochanteric fracture Status: Acute Assessment & Plan: She had surgical repair 2. She will be placed on Aspirin for DVT prophylaxis. She had PT/OT evaluation and recommended short term rehab. She was transferred to [facility] for rehab. She is progressing well and may be able to discharge soon. (2) PMR (polymyalgia rheumatica) Status: Chronic Assessment & Plan: She has been steroid dependent (currently on prednisone 5mg daily). She was stress dosed with IV Solu-Cortef for a couple of doses after surgery. She has now resumed her usual oral prednisone. (3) Aortic stenosis Status: Chronic Assessment & Plan: Borderline on echocardiogram approximately one year ago. She does appear to be relatively asymptomatic. (4) Benign essential hypertension Onset Date: 09/09/2014 Status: Chronic Assessment & Plan: She has been managed with losartan. She has hold parameters. Overall she has received it twice while on ECF due to the parameters. Despite the fact it has been held frequently, her average systolic BP is 135. Will continue to monitor. (5) COPD (chronic obstructive pulmonary disease) Status: Chronic Assessment & Plan: Will continue oxygen therapy. She has not been on respiratory treatments up to this point. Will start if needed. (6) CVA (cerebral vascular accident) Status: Chronic Assessment & Plan: She has some minor right LE paresis, which probably contributed to her fall. She has been on aspirin therapy, which was held pre-op and restarted post-operatively. Time Spent on Plan of Care: < 30 min LEANA CAPONE MD Jul 04, 2018 14:24
[2018-07-04] MEDS ORDERED: ACET-1718 PO (14:52)
--- NOTE | 2018-07-04 15:10 | Hospitalist Depart ---
Discharge Summary Reason for Hosp/Final Diag: (1) Intertrochanteric fracture Status: Acute Hospital Course & Plan: She had surgical repair 2/. She was placed back on aspirin for DVT prophylaxis. She had a PT/OT evaluation while on the surgical floor and short term rehab was recommended. She was transferred to [facility] for rehab. She progressed with rehab and was able to discharge with Home Health to continue PT/OT at home. (2) PMR (polymyalgia rheumatica) Status: Chronic Hospital Course & Plan: She had been steroid dependent (on prednisone 5mg daily). She was stress dosed with IV Solu-Cortef for a couple of doses after surgery. She then resumed her usual oral prednisone. (3) Aortic stenosis Status: Chronic Hospital Course & Plan: The patient was noted to have borderline aortic stenosis on echocardiogram approximately one year ago. She was asymptomatic while on ECF. (4) Benign essential hypertension Onset Date: 09/09/2014 Status: Chronic Hospital Course & Plan: She had been managed with losartan prior to admission. She had hold parameters and overall she has received her losartan twice while on ECF due to these parameters. Despite the fact it was held frequently, her average systolic BP was 135. Will DC losartan for now and have her follow up with Dr. Blakely as an outpatient. (5) COPD (chronic obstructive pulmonary disease) Status: Chronic Hospital Course & Plan: [place]ah was continued on oxygen therapy. She was not placed on respiratory treatments as she had no issues while on ECF. (6) CVA (cerebral vascular accident) Status: Chronic Hospital Course & Plan: She has some minor right LE paresis, which may have contributed to her fall. She had been on aspirin therapy before admission. This was held pre-op and restarted post-operatively for DVT prophylaxis. Departure Weight (Pounds): 110 Weight (Ounces): 10.0 Condition: Improved Discharge: Home, Home Health PT/OT Follow Up For: PT For Strengthening, OT For ADL's, ST Evaluation and Treat Home Health RN Follow Up For: Nursing Assessment Discharge Instructions Home Meds Active Scripts Acetaminophen With Codeine # 3 (ACETAMINOPHEN-COD #3 TABLET) 1 Each Tablet, 1-2 EACH PO Q6H PRN for PAIN, #20 TAB Prov:LEANA CAPONE MD 07/04/18 Prednisone 5 Mg Tab (PREDNISONE 5 MG TAB) 5 Mg Tablet, 1 TAB PO QDAY for 90 Days, #90 TAB Prov:DELANEY BLAKELY MD 06/12/18 Losartan Potassium (LOSARTAN POTASSIUM) 25 Mg Tablet, 1 TAB PO QDAY for 90 Days, #90 TAB 4 Refills Prov:DELANEY BLAKELY MD 04/26/18 Diclofenac Sodium 1% Gel (VOLTAREN 1% GEL) 100 Gm Gel..gram., 2 GM TOP QID PRN for pain for 30 Days, #1 TUBE apply to left shoulder Prov:DELANEY BLAKELY MD 02/26/18 Reported Medications Aspirin (ASPIRIN) 325 Mg Tablet, 1 TAB PO DAILY 06/23/17 Carboxymethylcellulose Sodium (RETAINE CMC) 1 Each Droperette, 1 EACH OP 06/03/17 Oxygen (OXYGEN) Inha, 2 L INH HS, L 04/07/17 Polyethylene Glycol 3350 (MIRALAX) 17 Gm Powd.pack, 17 GM PO PRN, PKT 04/07/17 Calcium Carb & Cit/Vitamin D3 (CALCIUM + D3 ER TABLET) Unknown Strength Tablet.er, 1 TAB PO DAILY 400mg/500IU 04/07/17 Vitamin E Acetate (VITAMIN E) 400 Unit Capsule, 1 CAP PO DAILY, CAPSULE 04/07/17 Follow up Referrals: Internal Medicine - In One Week @ [facility] with DELANEY BLAKELY MD Diet: Regular Activity: As Tolerated Special Instructions: The patient is to stop her losartan for now as her BP has been well controlled without losartan while on ECF. She is to see Dr. Blakely one to two weeks after discharge from ECF. Copies to: DELANEY BLAKELY MD ; Venous Thromboembolism Antithrombotics Is Pt On Any Antithrombotics?: Yes (ASA for DVT prophylaxis post hip fx repair.) LEANA CAPONE MD Jul 04, 2018 15:10
[2018-07-04 16:15] VITALS: BP 123/72
[2018-07-05 07:45] VITALS: BP 154/64
--- NOTE | 2018-07-05 08:09 | NUR ---
Occupational Therapy Impression Mod (I) toileting. Mod (I) ambulation x50ft, x75ft, x100ft with RW. Mod (I) sit<>stands from various surfaces including chair with no arms and low, soft couch. Pt nearing goals. Spouse reports having obtained all recommended AE. SpO2 WNL on room air throughout tx. Reports no further concerns to be addressed prior to discharge home. Occupational Therapy Goals 1. Pt. to perform dressing activities with Mod I. 2. Pt. to perform toileting activities with Mod I. 3. Pt. to perform showering activities with Min A. 4. Pt. to perform light meal prep with I. 5. Pt. to improve Merritt index of ADL score by 2 points. Patient's Goal
[2018-07-05] MEDS: POLYETHYLENE GLYCOL 17 GM PKT PO SCH (08:48)
[2018-07-05] MEDS: predniSONE 5 MG TAB PO SCH (08:48)
[2018-07-05] MEDS: DOCUSATE SODIUM 100 MG CAP PO SCH ×2 (08:49→20:45)
[2018-07-05] MEDS: LOSARTAN POTASSIUM 50 MG TAB PO SCH (08:49)
[2018-07-05] MEDS: ASPIRIN 325 MG ENTERIC COATED PO SCH (08:49)
--- NOTE | 2018-07-05 09:07 | NUR ---
Physical Therapy Impression The patient is safe to d/c home from a mobility stand point when medically appropriate. SBA for bed mobility, Lexie for transfers and SBA/Lexie for ambulation with RW. Pt demonstrates excellent tolerance to stair negotiation with RW and minimal verbal cues. Physical Therapy Goals 1. Pt to be modified indep with all bed mobility and supine to/from sit transfers 2. Pt to be modified indep with all sit to/from stand transfers from a variety of surfaces. 3. Pt to tolerate ambulation x 150' with least restrictive device and modified indep 4. Pt to caleb up/down platform step with least restrictive device and SBA/CGA 5. TUG test to improve to less than 60 seconds for clinical improvement. Patient's Goals
--- NOTE | 2018-07-05 11:49 | NUR ---
Occupational Therapy Impression Mod (I) ambulation x150ft with on various surfaces and crossing thresholds. No loss of balance, good tolerance. Mod (I) toileting. Mod (I) LB dressing with supervisor calibration/sock aid. UB ther ex HEP with blue theraband. Pt and spouse with no further questions/concerns for OT with regards to discharge. Plan for discharge home tomorrow with services. Occupational Therapy Goals 1. Pt. to perform dressing activities with Mod I. 2. Pt. to perform toileting activities with Mod I. 3. Pt. to perform showering activities with Min A. 4. Pt. to perform light meal prep with I. 5. Pt. to improve Merritt index of ADL score by 2 points. Patient's Goal
--- NOTE | 2018-07-05 11:54 | OT ECF NOTE ---
Type of Note: Discharge Note Primary Medical Diagnosis: Right Interchanteric fracture Occupational Therapy Evaluation Date: 06-26-18 SUBJECTIVE: Prior Hospitalization: [facility] medical/surgical floor from 06-23-18 to 06-26-18. Prior Level of Function: Independent with all ADL/ IADL activities. At times, pt. would ambulate with a cane. Prior Living Status: Single level house,Spouse Community Services: Independent Home Accessibility: One step into home, walk in shower with grab bars. Equipment Owned: Cane, RW, toilet riser, walker tray, sock aid, principal java developer Medical Complications/Past Medical History: Please refer to chart for details. Psychosocial Support: Supportive and family. Pain Scale (0-10): None stated during evaluation Hand Dominance: Right OBJECTIVE: Strength: MMT: Right Left Shoulder Flexion WFL WFL Elbow Flexion WFL WFL Wrist Extension WFL WFL Chief Crew Scheduler WFL WFL (5= normal, 4= good, 3= fair, 2= poor, 1= trace) ROM: Both upper extremities, WFL Functional Transfer: Assistive Device: Front wheeled walker Transfer Ability: Modified Independent ADL: Upper body dressing: Assistive device: None Upper body dressing ability: Independent Lower body dressing: Assistive device: Sock aid/principal java developer Lower body dressing ability: Modified Independent Toileting: Assistive device: Toilet riser Toileting ability: Modified Independent Grooming/hygiene: Standing Assistive device: None Grooming ability: Independent Bathing: Assistive device: Encouraged obtaining shower chair-pt refusing Bathing ability: Modified Independent Standardized Assessment: Merritt Index of Activities of Daily Living- Pt. scored a 13/20 on this Index during the IE. 20/20 upon discharge (07/05/18). ASSESSMENT: Pt. is a 87 year old female who fell at home and sustained a Right Introchanteric fracture that was surgically repaired by Dr. Londono on 06/24/18). Pt. resides in [place], with her in a one story home with 1 stair to access. Pt. has a previous history of a CVA, with residual right sided weakness. Pt. was independent with all ADL /IADL activities prior to surgery. Pt. has met all skilled OT goals and presents with no further questions/concerns to be addressed with OT prior to discharge home. Short Term Goals: 1. Pt. to perform dressing activities with Mod I. GOAL MET 2. Pt. to perform toileting activities with Mod I. GOAL MET 3. Pt. to perform showering activities with Min A. GOAL MET 4. Pt. to perform light meal prep with I.GOAL MET 5. Pt. to improve Merritt index of ADL score by 2 points. GOAL MET Snf Goals: Return home. Patient Goals: Return home. Rehabilitation Prognosis: Good Barriers to Discharge: Previous medical history PLAN: The patient will discharge home with services and assist from spouse. Thank you for this referral. If you have any questions, concerns, or comments about this report or plan, please contact me at . Kirsten Lindsay MS, OTR/L Occupational Therapist RAVINDRA
[2018-07-05 17:00] VITALS: BP 101/64
--- NOTE | 2018-07-05 17:10 | NUR ---
PHYSICAL THERAPY INFORMATION TRANSFER SHEET BED MOBILITY: Standby Assistance TRANSFERS: Modified I/ AE GAIT: 300 ' with RW and Standby Assistance Modified I/ AE Weightbearing Status: Weight bearing as caleb STAIRS: 2 with Standby Assistance. EXERCISES: Verbalizes Needs: Yes Understands Directions Yes Cooperative: Yes Family Teaching: Yes Physical Therapy Comment:
--- NOTE | 2018-07-05 17:16 | PT ECF NOTE ---
Type of Note: Discharge Summary Primary Medical Diagnosis: Right Intertrochanteric fracture Physical Therapy Evaluation Date: 06-26-18 SUBJECTIVE: Prior Hospitalization: [facility] medical/surgical floor from 06-23-18 to 06-26-18. Prior Level of Function: Independent with all ADL/ IADL activities. At times, pt. would ambulate with a cane. Prior Living Status: Single level house; Spouse Community Services: Independent Home Accessibility: One step into home, walk in shower with grab bars. Equipment Owned: Cane Medical Complications/Past Medical History: Please refer to chart for details. Psychosocial Support: Supportive and family. Pain Scale (0-10): 1/10 with mobility OBJECTIVE: Strength: R) LE hip flexion: <3/5 knee extension: 3/5 knee flexion: 3+/5 DF: 5/5 L) LE hip flexion: 4/5 knee extension: 4/5 knee flexion: 4/5 DF: 5/5 ROM: (please note any abnormalities) R) hip limited currently by stiffness; no posterior hip precautions. Sensation: (please note any abnormalities) no paresthesias reported Other Neuro findings: previous CVA with residual hemiparesis Bed Mobility: SBA Transfers: Lexie with RW Gait: SBA/Lexie with RW x300' Stairs: SBA x 2 platform stairs Timed Up and Go (>12 seconds indicated increased risk for falls): 52.69 seconds ASSESSMENT: The patient is safe to d/c home from a mobility stand point when medically appropriate. SBA for bed mobility, Lexie for transfers and SBA/Lexie for ambulation with RW. Pt demonstrates excellent tolerance to stair negotiation with RW and minimal verbal cues. She will d/c home with her spouse and [facility] services. No further PT visits planned. Short Term Goals: (partially met) 1. Pt to be modified indep with all bed mobility and supine to/from sit transfers 2. Pt to be modified indep with all sit to/from stand transfers from a variety of surfaces. 3. Pt to tolerate ambulation x 150' with least restrictive device and modified indep 4. Pt to caleb up/down platform step with least restrictive device and SBA/CGA 5. TUG test to improve to less than 60 seconds for clinical improvement. Usp Goals: Pt to return home with assist of . (met) Patient Goals: Return home (met) PLAN: The patient will discharge to her home with her spouse and [facility] services. Thank you for this referral. If you have any questions, concerns, or comments about this report or plan, please contact me at . Suzanne Alejandra, PT, DPT [facility]
[2018-07-06 07:30] VITALS: BP 144/72
[2018-07-06] MEDS: predniSONE 5 MG TAB PO SCH (08:35)
[2018-07-06] MEDS: POLYETHYLENE GLYCOL 17 GM PKT PO SCH (08:35)
[2018-07-06] MEDS: ASPIRIN 325 MG ENTERIC COATED PO SCH (08:35)
[2018-07-06] MEDS: DOCUSATE SODIUM 100 MG CAP PO SCH (08:35)
[2018-07-06] MEDS: LOSARTAN POTASSIUM 50 MG TAB PO SCH (08:37)
== END 2018-07-06 09:25 | disposition home health service (06) | DRG 560 ==
LOC: ECF 12:40
PROVIDERS: ADMIT Family Medicine; ATTEND Family Medicine
DX: S72.141D Displaced intertrochanteric fracture of right femur, subsequent encounter for closed fracture with routine healing (principal); G81.91 Hemiplegia, unspecified affecting right dominant side; M35.3 Polymyalgia rheumatica; I35.0 Nonrheumatic aortic (valve) stenosis; I10 Essential (primary) hypertension; J44.9 Chronic obstructive pulmonary disease, unspecified; Z79.52 Long term (current) use of systemic steroids
CPT/HCPCS: 97161; 97165; J7512

== ENCOUNTER → 2018-07-19 | Outpatient (CLI) | payer MEDICARE ==
[2018-06-24 10:15] VITALS: BMI 19.1
[~2018-07-19] MED LIST changes: +ACET-1718 PO
== END ==
LOC: LAB 09:34
PROVIDERS: ATTEND Family Medicine
DX: M81.0 Age-related osteoporosis without current pathological fracture (principal)
CPT/HCPCS: 36415; 82306

== ENCOUNTER → 2018-08-20 | Outpatient (CLI) | payer MEDICARE ==
[2018-06-24 10:15] VITALS: BMI 19.1
[~2018-08-20] MED LIST changes: +ALEN70TA43 PO; +CHOL200021 PO
== END ==
LOC: LAB 10:09
PROVIDERS: ATTEND Family Medicine
DX: E55.9 Vitamin D deficiency, unspecified (principal)
CPT/HCPCS: 36415; 82306